=== PATIENT | female | born 1935 | race Caucasian/White ===

== ENCOUNTER → 2016-05-19 | Day surgery (SDC) | payer MEDICARE, OTHER ==
[~2016-05-19] MED LIST: Lactated Ringers 1,000 ML IV SCH; Propofol 200 MG/20 ML SDV IV ONE
[2016-05-19 09:05] VITALS: BP 106/46
--- NOTE | 2016-05-19 13:07 | OR ---
DATE OF OPERATION: 05/19/2016 PREOPERATIVE DIAGNOSIS: HISTORY OF POLYPS. POSTOPERATIVE DIAGNOSIS: HISTORY OF POLYPS. SURGEON: Erik Schumacher MD PROCEDURE: FULL LENGTH COLONOSCOPY WITH SNARE POLYPECTOMY X5. ANESTHESIA: [employer] due to advanced age. COMPLICATIONS: None. SPECIMEN: Five small tubular adenomas, 4 on right colon, and 1 sigmoid. FINDINGS: 1. Full-length colonoscopy. 2. Minimal diverticulosis, sigmoid colon. 3. Five small tubular adenomas, all less than 0.5 cm. RECOMMENDATIONS: The patient can discuss the need for routine follow up with her provider in the next five years. INDICATIONS: The patient has a prior history of colonoscopy with polyp removal. She is due for a followup. DESCRIPTION OF PROCEDURE: The patient was prepped and draped, placed in the left lateral decubitus position. A lubricated Olympus colonoscope was inserted and ultimately advanced to the cecum where we directly visualize the ileocecal valve and appendiceal orifice. The bowel prep was excellent. Upon withdrawal the scope, the patient had four small tubular adenomas, in the right colon one, in the proximal one, in the mid and then two together in the distal prior to the hepatic flexure, all were removed with a snare and suctioned into polyp traps 1, 2, 3, and 4 respectively. The rest of the transverse and descending colon were completely unremarkable. The patient has a few scattered diverticula in the mid to distal sigmoid colon, very mild in severity. At around 35 cm, the patient had another small flat hyperplastic/tubular adenoma polyp removed with a snare and suctioned into polyp trap #5 without complication. The rectal vault was unremarkable. Retroflexion scope in the rectum showed no anal lesions. Air was then suctioned. Scope removed without complications. PHAM/SHRUTHI /[id number]
== END ==
LOC: CC.SDS 07:13
PROVIDERS: ATTEND Family Medicine
DX: Z12.11 Encounter for screening for malignant neoplasm of colon (principal); K57.30 Diverticulosis of large intestine without perforation or abscess without bleeding; I10 Essential (primary) hypertension; E78.00 Pure hypercholesterolemia, unspecified; E55.9 Vitamin D deficiency, unspecified; Z79.899 Other long term (current) drug therapy; Z90.710 Acquired absence of both cervix and uterus; Z88.8 Allergy status to other drugs, medicaments and biological substances; Z96.659 Presence of unspecified artificial knee joint; Z72.0 Tobacco use
CPT/HCPCS: 45385; 88305; J2704; J7120; 00810

== ENCOUNTER 2019-12-22 10:39 | Inpatient (IN) | payer MEDICARE, OTHER ==
[2019-12-22] MEDS ORDERED: Acetaminophen 500 MG Tab PO ONE (11:24)
[2019-12-22] MEDS ORDERED: Sodium Chloride 0.9% 1,000 ML IV SCH (11:30)
[2019-12-22] MEDS: Ondansetron 4 MG/2 ML SDV IVPUSH PRN (11:41)
--- NOTE | 2019-12-22 11:56 | EDM.PDOC ---
ED HPI GENERAL MEDICAL PROBLEM - General Chief Complaint: General Stated Complaint: vomiting, COVID+ Time Seen by Provider: 12/22/19 11:20 Source of Information: Reports: Patient History Limitations: Reports: No Limitations - History of Present Illness INITIAL COMMENTS - FREE TEXT/NARRATIVE: Pierre is an 84 yo female who presents to the ED with not feeling well. States she was diagnosed with COVID last week and was asymptomatic at that time. States yesterday she started to feel ill and today hasn't been able to drink much. States she started vomiting today. Has had loose stools over the weekend. However, when she was diagnosed she states Dr. Castaneda, primary provider, did start her on an antibiotic and steroid. Whenever she is on antibiotics she will get loose stools. States her mouth feels really dry today and has started getting a dry cough. Overall feels really weak. - Related Data Allergies Allergy/AdvReac Type Severity Reaction Status Date / Time codeine Allergy Cannot Verified 12/22/19 10:41 Remember Home Meds: Home Meds Glucosamine/Chondroitin/Vit D3 [[id number] D3 Tab] 1 tab PO DAILY 03/16/16 [History] Magnesium Oxide [Magnesium] 400 mg PO DAILY 03/16/16 [History] Nebivolol [Bystolic] 5 mg PO DAILY 03/16/16 [History] Past Medical History Cardiovascular History: Reports: Hypertension - Infectious Disease History Infectious Disease History: Reports: Novel Coronavirus - Past Surgical History GI Surgical History: Reports: Appendectomy Musculoskeletal Surgical History: Reports: Knee Replacement Social & Family History - Tobacco Use Tobacco Use Status *Q: Never Tobacco User - Caffeine Use Caffeine Use: Reports: Coffee, Soda - Recreational Drug Use Recreational Drug Use: No ED ROS GENERAL - Review of Systems Review Of Systems: See Below Constitutional: Reports: Fever, Chills, Weakness, Fatigue HEENT: Reports: Throat Pain (dry throat) Respiratory: Reports: Cough. Denies: Shortness of Breath, Wheezing, Pleuritic Chest Pain Cardiovascular: Reports: Chest Pain. Denies: Edema, Lightheadedness, P alpitations GI/Abdominal: Reports: Diarrhea, Nausea, Vomiting. Denies: Abdominal Pain, Constipation : Reports: No Symptoms Musculoskeletal: Reports: No Symptoms. Denies: Muscle Pain Skin: Reports: No Symptoms Neurological: Reports: No Symptoms. Denies: Headache Psychiatric: Reports: No Symptoms ED EXAM, GENERAL - Physical Exam Exam: See Below Exam Limited By: No Limitations General Appearance: Alert, Other (appears to be acutely ill, no distress) Eye Exam: Bilateral Eye: Normal Inspection Ears: Normal External Exam, Normal Canal, Hearing Grossly Normal, Normal TMs Nose: Normal Inspection, Normal Mucosa, No Blood Throat/Mouth: Normal Lips, Normal Voice, No Airway Compromise, Other (dry oral mucosa) Head: Atraumatic, Normocephalic Neck: Normal Inspection, Supple, Non-Tender. No: Lymphadenopathy (L), Lymphadenopathy (R) Respiratory/Chest: Chest Non-Tender, Crackles (bases). No: No Accessory Muscle Use, Respiratory Distress Cardiovascular: Normal Peripheral Pulses, Regular Rate, Rhythm, No Edema, No Murmur GI/Abdominal: Normal Bowel Sounds, Soft, Non-Tender, No Organomegaly, No Distention, No Abnormal Bruit Extremities: Normal Inspection, No Pedal Edema Neurological: Alert, Oriented, Normal Cognition, No Motor/Sensory Deficits Psychiatric: Normal Affect, Normal Mood Skin Exam: Dry, Intact, Normal Color, No Rash, Increased Warmth #1 Interpretation Comparison: NA - No Prior EKG Course - Vital Signs Last Recorded V/S: Last Vital Signs Temp 101 F H 12/22/19 11:38 Pulse 66 12/22/19 11:23 Resp 16 12/22/19 11:23 BP 160/67 H 12/22/19 11:23 Pulse Ox 91 L 12/22/19 11:23 - Orders/Labs/Meds Orders: Active Orders 24 hr Category Date Time Status Patient Status Manage Transfer [TRANSFER] Routine ADT 12/22/19 11:40 Active Chest 2V [CR] Stat Exams 12/22/19 10:52 Taken Ondansetron [Zofran] Med 12/22/19 11:32 Active 4 mg IVPUSH Q6H PRN Sodium Chloride 0.9% [Normal Saline] 1,000 ml Med 12/22/19 11:30 Active IV ASDIRECTED Medication Orders Ascorbic Acid (Vitamin C) 500 mg PO BID JOHNY Cholecalciferol (Vitamin D3) 25 mcg PO DAILY JOHNY Enoxaparin Sodium (Lovenox) 40 mg SUBCUT Q24H JOHNY Sodium Chloride (Normal Saline) 1,000 mls @ 150 mls/hr IV ASDIRECTED JOHNY Last Admin: 12/22/19 11:35 Dose: 150 mls/hr Documented by: DAINA Non-Formulary Medication (Magnesium Oxide [Magnesium]) 400 mg PO DAILY [facility] Non-Formulary Medication (Nebivolol [Bystolic]) 5 mg PO DAILY [facility] Ondansetron HCl (Zofran) 4 mg IVPUSH Q6H PRN PRN Reason: Nausea Last Admin: 12/22/19 11:41 Dose: 4 mg Documented by: DAINA Zinc Sulfate (Zincate) 220 mg PO DAILY [facility] Labs: Laboratory Tests 12/22/19 12/22/19 12/22/19 Range/Units 10:51 10:51 10:51 WBC 8.1 (5.0-10.0) 10^3/uL RBC 4.30 (4.00-5.50) 10^6/uL Hgb 13.4 (12.0-16.0) g/dL Hct 40.6 (37.0-47.0) % MCV 94.4 H (82.0-94.0) fL MCH 31.2 (27.0-32.0) pg MCHC 33.0 (33.0-38.0) g/dL RDW Coeff of Kiet 13.8 (11.0-15.0) % Plt Count 203 (150-400) 10^3/uL Neut % (Auto) 75.6 (35-85) % Lymph % (Auto) 11.2 (10-55) % [place] % (Auto) 13.0 (0-16) % Eos % (Auto) 0 (0-5) % Baso % (Auto) 0.2 (0-3) % Neut # (Auto) 6.14 (1.80-7.00) 10^3/uL Lymph # (Auto) 0.91 L (1.00-4.80) 10^3/uL [place] # (Auto) 1.06 H (0.00-0.80) 10^3/uL Eos # (Auto) 0.00 (0.00-0.45) 10^3/uL Baso # (Auto) 0.02 10^3/uL PT 11.2 (9.7-12.3) SEC INR 1.11 (0.92-1.18) D-Dimer, Quantitative 1.29 H (0.00-0.50) Sodium 128 L (136-145) mEq/L Potassium 4.1 (3.5-5.0) mEq/L Chloride 94 L (98-106) mEq/L Carbon Dioxide 24 (21-32) mmol/L BUN 24 H (7-18) mg/dL Creatinine 1.2 H (0.6-1.0) mg/dL Est Cr Clr Drug Dosing 29.06 mL/min Estimated GFR (MDRD) 43 L (>=60) mL/min Glucose 109 H (75-99) mg/dL Lactic Acid (0.4-2.0) mmol/L Calcium 8.0 L (8.4-10.1) mg/dL Total Bilirubin 0.4 (0.0-1.0) mg/dL AST 35 (15-37) U/L ALT 51 (12-78) U/L Alkaline Phosphatase 77 (46-116) U/L C-Reactive Protein 9.1 H (0.2-0.8) mg/dL Total Protein 7.5 (6.4-8.2) g/dL Albumin 3.2 L (3.4-5.0) g/dL 12/22/19 Range/Units 10:51 WBC (5.0-10.0) 10^3/uL RBC (4.00-5.50) 10^6/uL Hgb (12.0-16.0) g/dL Hct (37.0-47.0) % MCV (82.0-94.0) fL MCH (27.0-32.0) pg MCHC (33.0-38.0) g/dL RDW Coeff of Kiet (11.0-15.0) % Plt Count (150-400) 10^3/uL Neut % (Auto) (35-85) % Lymph % (Auto) (10-55) % [place] % (Auto) (0-16) % Eos % (Auto) (0-5) % Baso % (Auto) (0-3) % Neut # (Auto) (1.80-7.00) 10^3/uL Lymph # (Auto) (1.00-4.80) 10^3/uL [place] # (Auto) (0.00-0.80) 10^3/uL Eos # (Auto) (0.00-0.45) 10^3/uL Baso # (Auto) 10^3/uL PT (9.7-12.3) SEC INR (0.92-1.18) D-Dimer, Quantitative (0.00-0.50) Sodium (136-145) mEq/L Potassium (3.5-5.0) mEq/L Chloride (98-106) mEq/L Carbon Dioxide (21-32) mmol/L BUN (7-18) mg/dL Creatinine (0.6-1.0) mg/dL Est Cr Clr Drug Dosing mL/min Estimated GFR (MDRD) (>=60) mL/min Glucose (75-99) mg/dL Lactic Acid 1.5 (0.4-2.0) mmol/L Calcium (8.4-10.1) mg/dL Total Bilirubin (0.0-1.0) mg/dL AST (15-37) U/L ALT (12-78) U/L Alkaline Phosphatase (46-116) U/L C-Reactive Protein (0.2-0.8) mg/dL Total Protein (6.4-8.2) g/dL Albumin (3.4-5.0) g/dL Meds: Medications Generic Name Dose Route Start Last Admin Trade Name Freq PRN Reason Stop Dose Admin Ascorbic Acid 500 mg 12/22/19 20:00 Vitamin C PO BID [facility] Cholecalciferol 25 mcg 12/23/19 08:00 Vitamin D3 PO DAILY [facility] Enoxaparin Sodium 40 mg 12/22/19 12:00 Lovenox SUBCUT Q24H [facility] Sodium Chloride 1,000 mls @ 150 mls/hr 12/22/19 11:30 12/22/19 11:35 Normal Saline IV 150 mls/hr ASDIRECTED JOHNY Administration Non-Formulary Medication 400 mg 12/23/19 08:00 Magnesium Oxide [Magnesium] PO DAILY [facility] Non-Formulary Medication 5 mg 12/23/19 08:00 Nebivolol [Bystolic] PO DAILY [facility] Ondansetron HCl 4 mg 12/22/19 11:32 12/22/19 11:41 Zofran IVPUSH 4 mg Q6H PRN Administration Nausea Zinc Sulfate 220 mg 12/23/19 08:00 Zincate PO DAILY JOHNY Discontinued Medications Generic Name Dose Route Start Last Admin Trade Name Amauriq PRN Reason Stop Dose Admin Acetaminophen 1,000 mg 12/22/19 11:24 12/22/19 11:38 Tylenol Extra Strength PO 12/22/19 11:25 1,000 mg ONETIME ONE Administration Departure - Departure Time of Disposition: 11:57 Disposition: Admitted As Inpatient 64 Clinical Impression: COVID-19, Hyponatremia Nausea and vomiting Qualifiers: Vomiting type: unspecified Vomiting Intractability: non-intractable Qualified Code(s): R11.2 - Nausea with vomiting, unspecified - Discharge Information Sepsis Event Note (ED) - Evaluation Sepsis Screening Result: No Definite Risk - Focused Exam Vital Signs: Vital Signs Temp Temp Pulse Resp BP Pulse Ox 12/22/19 11:38 101 F H 12/22/19 11:23 101 F H 66 16 160/67 H 91 L 12/22/19 10:39 99.4 F 70 18 161/62 H 94 L - Problem List & Annotations (1) COVID-19 SNOMED Code(s): 524133902 Code(s): U07.1 - COVID-19 Status: Acute Current Visit: Yes (2) Hyponatremia SNOMED Code(s): 05105207 Code(s): E87.1 - HYPO-OSMOLALITY AND HYPONATREMIA Status: Acute Current Visit: Yes (3) Nausea and vomiting SNOMED Code(s): 48747114 Code(s): R11.2 - NAUSEA WITH VOMITING, UNSPECIFIED Status: Acute Current Visit: Yes Qualifiers: Vomiting type: unspecified Vomiting Intractability: non-intractable Qualified Code(s): R11.2 - Nausea with vomiting, unspecified - My Orders Last 24 Hours: My Active Orders 12/22/19 10:52 Chest 2V [CR] Stat 12/22/19 11:30 Sodium Chloride 0.9% [Normal Saline] 1,000 ml IV ASDIRECTED 12/22/19 11:32 Ondansetron [Zofran] 4 mg IVPUSH Q6H PRN 12/22/19 11:40 Patient Status Manage Transfer [TRANSFER] Routine - Assessment/Plan Admission H&P: Please use this note as an admission H&P Last 24 Hours: My Active Orders 12/22/19 10:52 Chest 2V [CR] Stat 12/22/19 11:30 Sodium Chloride 0.9% [Normal Saline] 1,000 ml IV ASDIRECTED 12/22/19 11:32 Ondansetron [Zofran] 4 mg IVPUSH Q6H PRN 12/22/19 11:40 Patient Status Manage Transfer [TRANSFER] Routine Plan: discussed findings with Pierre. Will admit to Dr. Schumacher's services under acute care. Patient will get normal saline to correct sodium level. Repeat labs in the morning to follow. Will closely monitor oxygen status as she is currently 92% on RA. Discussed would like to see this at or above 94%. Dr. Schumacher consulted and agrees with admission. I discussed with Pierre further treatment, if needed, such as intubation, etc... which Pierre declined. Patient wishes to be DNR. Patient transferred to floor in satisfactory condition.
[2019-12-22] MEDS: Cholecalciferol (Vitamin D3) 25 MCG Tab PO SCH (12:37)
[2019-12-22] MEDS: Sodium Chloride 0.9% 1,000 ML IV SCH ×2 (14:55→19:52)
[2019-12-22] MEDS: Ascorbic Acid 500 MG Tab PO SCH (19:48)
[2019-12-22] MEDS: Enoxaparin 30 MG/0.3 ML Syringe SUBCUT SCH (19:48)
[2019-12-22] MEDS: Acetaminophen 325 MG Tab PO PRN (19:55)
[2019-12-23] MEDS: Acetaminophen 325 MG Tab PO PRN ×3 (00:20→08:39)
[2019-12-23] MEDS: Sodium Chloride 0.9% 1,000 ML IV SCH (05:52)
[2019-12-23] MEDS: NEBIVOLOL 5 MG PO SCH (07:50)
[2019-12-23] MEDS: Cholecalciferol (Vitamin D3) 25 MCG Tab PO SCH (07:51)
[2019-12-23] MEDS: Zinc Sulfate 220 MG Cap PO SCH (07:51)
[2019-12-23] MEDS: Ascorbic Acid 500 MG Tab PO SCH ×2 (07:51→19:43)
[2019-12-23] MEDS: Ibuprofen 200 MG Tab PO PRN (12:09)
--- NOTE | 2019-12-23 15:54 | PCM.PN ---
- General Info Date of Service: 12/23/19 Admission Dx/Problem (Free Text): Pierre is an 84 yo female who was admitted to the hospital yesterday after being found to be positive for Covid. Upon work up in the ED patient had hyponatremia with a slightly elevated d-dimer and CRP. She had excellent oxygen sats on admission. 12/23/2019 She states she feels slight improvement today as yesterday. States she doesn't have much of an appetite but is eating half of her food. States she hasn't developed any shortness of breath. Cough is non-productive but better than yesterday. States she doesn't feel as unsteady on her feet today. Continue to feel really fatigued. Functional Status: Reports: Pain Controlled, Tolerating Diet (decreased), Ambulating. Denies: New Symptoms - Review of Systems General: Reports: Fever, Fatigue, Malaise HEENT: Reports: No Symptoms Pulmonary: Reports: Cough. Denies: Shortness of Breath, Pleuritic Chest Pain Cardiovascular: Reports: No Symptoms Gastrointestinal: Reports: Decreased Appetite. Denies: Abdominal Pain, Constipation, Diarrhea, Melena, Nausea, Vomiting Genitourinary: Reports: No Symptoms Skin: Reports: No Symptoms Neurological: Reports: No Symptoms Psychiatric: Reports: No Symptoms - Patient Data Vitals - Most Recent: Last Vital Signs Temp 102 F H 12/23/19 12:09 Pulse 64 12/23/19 12:00 Resp 18 12/23/19 12:00 BP 183/63 H 12/23/19 12:00 Pulse Ox 97 12/23/19 12:00 Weight - Most Recent: 173 lb 6.4 oz I&O - Last 24 Hours: Intake & Output 12/23/19 12/23/19 12/23/19 06:59 14:59 22:59 Intake Total 1000 Balance 1000 Lab Results Last 24 Hours: Laboratory Results - last 24 hr 12/23/19 12/23/19 12/23/19 Range/Units 07:00 07:00 07:00 WBC 4.9 L (5.0-10.0) 10^3/uL RBC 3.71 L (4.00-5.50) 10^6/uL Hgb 11.5 L (12.0-16.0) g/dL Hct 35.4 L (37.0-47.0) % MCV 95.4 H (82.0-94.0) fL MCH 31.0 (27.0-32.0) pg MCHC 32.5 L (33.0-38.0) g/dL RDW Coeff of Kiet 13.9 (11.0-15.0) % Plt Count 159 (150-400) 10^3/uL Neut % (Auto) 70.7 (35-85) % Lymph % (Auto) 20.7 (10-55) % [place] % (Auto) 8.2 (0-16) % Eos % (Auto) 0.2 (0-5) % Baso % (Auto) 0.2 (0-3) % Neut # (Auto) 3.44 (1.80-7.00) 10^3/uL Lymph # (Auto) 1.01 (1.00-4.80) 10^3/uL [place] # (Auto) 0.40 (0.00-0.80) 10^3/uL Eos # (Auto) 0.01 (0.00-0.45) 10^3/uL Baso # (Auto) 0.01 10^3/uL D-Dimer, Quantitative 1.27 H (0.00-0.50) Sodium 132 L (136-145) mEq/L Potassium 4.0 (3.5-5.0) mEq/L Chloride 101 (98-106) mEq/L Carbon Dioxide 22 (21-32) mmol/L BUN 22 H (7-18) mg/dL Creatinine 1.1 H (0.6-1.0) mg/dL Est Cr Clr Drug Dosing 31.70 mL/min Estimated GFR (MDRD) 47 L (>=60) mL/min Glucose 85 (75-99) mg/dL Calcium 7.1 L (8.4-10.1) mg/dL Total Bilirubin 0.3 (0.0-1.0) mg/dL AST 29 (15-37) U/L ALT 34 (12-78) U/L Alkaline Phosphatase 57 (46-116) U/L C-Reactive Protein 12.8 H (0.2-0.8) mg/dL NT-Pro-B Natriuret Pep (0-1000) pg/mL Total Protein 5.5 L (6.4-8.2) g/dL Albumin 2.2 L (3.4-5.0) g/dL 12/23/19 Range/Units 07:00 WBC (5.0-10.0) 10^3/uL RBC (4.00-5.50) 10^6/uL Hgb (12.0-16.0) g/dL Hct (37.0-47.0) % MCV (82.0-94.0) fL MCH (27.0-32.0) pg MCHC (33.0-38.0) g/dL RDW Coeff of Kiet (11.0-15.0) % Plt Count (150-400) 10^3/uL Neut % (Auto) (35-85) % Lymph % (Auto) (10-55) % [place] % (Auto) (0-16) % Eos % (Auto) (0-5) % Baso % (Auto) (0-3) % Neut # (Auto) (1.80-7.00) 10^3/uL Lymph # (Auto) (1.00-4.80) 10^3/uL [place] # (Auto) (0.00-0.80) 10^3/uL Eos # (Auto) (0.00-0.45) 10^3/uL Baso # (Auto) 10^3/uL D-Dimer, Quantitative (0.00-0.50) Sodium (136-145) mEq/L Potassium (3.5-5.0) mEq/L Chloride (98-106) mEq/L Carbon Dioxide (21-32) mmol/L BUN (7-18) mg/dL Creatinine (0.6-1.0) mg/dL Est Cr Clr Drug Dosing mL/min Estimated GFR (MDRD) (>=60) mL/min Glucose (75-99) mg/dL Calcium (8.4-10.1) mg/dL Total Bilirubin (0.0-1.0) mg/dL AST (15-37) U/L ALT (12-78) U/L Alkaline Phosphatase (46-116) U/L C-Reactive Protein (0.2-0.8) mg/dL NT-Pro-B Natriuret Pep 679 (0-1000) pg/mL Total Protein (6.4-8.2) g/dL Albumin (3.4-5.0) g/dL Med Orders - Current: Current Medications Acetaminophen (Tylenol) 650 mg PO Q4H PRN PRN Reason: Pain (Mild 1-3)/fever Last Admin: 12/23/19 08:39 Dose: 650 mg Documented by: Ascorbic Acid (Vitamin C) 500 mg PO BID [facility] Last Admin: 12/23/19 07:51 Dose: 500 mg Documented by: Cholecalciferol (Vitamin D3) 25 mcg PO DAILY [facility] Last Admin: 12/23/19 07:51 Dose: 25 mcg Documented by: Enoxaparin Sodium (Lovenox) 30 mg SUBCUT DAILY@1999 [facility] Last Admin: 12/22/19 19:48 Dose: 30 mg Documented by: Ibuprofen (Motrin) 400 mg PO Q6H PRN PRN Reason: Pain (mild 1-3) Last Admin: 12/23/19 12:09 Dose: 400 mg Documented by: Magnesium Oxide (Magnesium Oxide) 500 mg PO DAILY [facility] Last Admin: 12/23/19 07:51 Dose: 500 mg Documented by: Nebivolol [Bystolic] (5 Mg Tab Ptom) 0 mg PO DAILY [facility] Last Admin: 12/23/19 07:50 Dose: 5 mg Documented by: Ondansetron HCl (Zofran) 4 mg IVPUSH Q6H PRN PRN Reason: Nausea Last Admin: 12/22/19 11:41 Dose: 4 mg Documented by: Zinc Sulfate (Zincate) 220 mg PO DAILY [facility] Last Admin: 12/23/19 07:51 Dose: 220 mg Documented by: Discontinued Medications Acetaminophen (Tylenol Extra Strength) 1,000 mg PO ONETIME ONE Stop: 12/22/19 11:25 Last Admin: 12/22/19 11:38 Dose: 1,000 mg Documented by: Sodium Chloride (Normal Saline) 1,000 mls @ 150 mls/hr IV ASDIRECTED [facility] Last Admin: 12/22/19 11:35 Dose: 150 mls/hr Documented by: Sodium Chloride (Normal Saline) 1,000 mls @ 100 mls/hr IV ASDIRECTED [facility] Last Admin: 12/23/19 05:52 Dose: 100 mls/hr Documented by: - Exam Quality Assessment: No: Supplemental Oxygen General: Alert, Oriented Neck: Supple Lungs: Decreased Breath Sounds. No: Rhonchi, Wheezing Cardiovascular: Regular Rate, Regular Rhythm, No Murmurs Extremities: Normal Inspection, No Pedal Edema Skin: Warm, Dry, Intact Psy/Mental Status: Alert, Normal Affect, Normal Mood Sepsis Event Note - Evaluation Sepsis Screening Result: No Definite Risk - Focused Exam Vital Signs: Vital Signs Temp Temp Pulse Resp BP Pulse Ox 12/23/19 12:09 102 F H 12/23/19 12:00 102.0 F H 64 18 183/63 H 97 12/23/19 08:00 101.1 F H 70 18 178/70 H 98 12/23/19 05:45 100.6 F 12/23/19 04:15 101.8 F H 64 16 135/49 L 95 - Problem List & Annotations (1) COVID-19 SNOMED Code(s): 409457659 Code(s): U07.1 - COVID-19 Status: Acute Current Visit: Yes (2) Hyponatremia SNOMED Code(s): 43349326 Code(s): E87.1 - HYPO-OSMOLALITY AND HYPONATREMIA Status: Acute Current Visit: Yes (3) Nausea and vomiting SNOMED Code(s): 00335340 Code(s): R11.2 - NAUSEA WITH VOMITING, UNSPECIFIED Status: Resolved Current Visit: Yes Qualifiers: Vomiting type: unspecified Vomiting Intractability: non-intractable Qualified Code(s): R11.2 - Nausea with vomiting, unspecified - Problem List Review Problem List Initiated/Reviewed/Updated: Yes - My Orders Last 24 Hours: My Active Orders 12/22/19 20:00 Ascorbic Acid [Vitamin C] 500 mg PO BID Enoxaparin [Lovenox] 30 mg SUBCUT DAILY@199912/23/19 08:00 Magnesium Oxide 500 mg PO DAILY Nebivolol [Bystolic] 0 mg PO DAILY Zinc Sulfate [Zincate] 220 mg PO DAILY 12/23/19 11:27 Blood Culture x2 Reflex Set [OM.PC] Stat 12/23/19 11:50 CULTURE BLOOD [BC] Stat CULTURE BLOOD [BC] Stat 12/24/19 05:11 C-REACTIVE PROTEIN [CHEM] AM CBC WITH AUTO DIFF [HEME] AM COMPREHENSIVE METABOLIC PN,CMP [CHEM] AM D-DIMER QUANTITATIVE [COAG] AM LACTIC ACID [CHEM] AM 11/12/20 05:11 C-REACTIVE PROTEIN [CHEM] AM CBC WITH AUTO DIFF [HEME] AM COMPREHENSIVE METABOLIC PN,CMP [CHEM] AM D-DIMER QUANTITATIVE [COAG] AM - Plan Plan:: 12/23/2019 Pierre's laboratory work today did show improvement with sodium level to 132, up from 128 yesterday. Will d/c IV fluids and encourage adequate oral intake. Oxygen saturation continues to be excellent. Currently does not qualify for Remdesevir or dexamethasone use d/t no sign of hypoxia. CRP did elevate today otherwise labs are all stable. Hgb dropped, likely secondary to IV fluids. Will repeat labs tomorrow. Discussed with Pierre if she continues to show improvement and correction of hyponatremia will look at discharge tomorrow or . Patient verbalized understanding.
[2019-12-23] MEDS: Enoxaparin 30 MG/0.3 ML Syringe SUBCUT SCH (19:43)
[2019-12-24] MEDS: Zinc Sulfate 220 MG Cap PO SCH (08:29)
[2019-12-24] MEDS: NEBIVOLOL 5 MG PO SCH (08:29)
[2019-12-24] MEDS: Ascorbic Acid 500 MG Tab PO SCH ×2 (08:30→20:38)
[2019-12-24] MEDS: Cholecalciferol (Vitamin D3) 25 MCG Tab PO SCH (08:31)
[2019-12-24] MEDS ORDERED: Sodium Chloride 0.9% 250 ML IV SCH (09:00)
[2019-12-24] MEDS: Ibuprofen 200 MG Tab PO PRN (09:38)
[2019-12-24] MEDS ORDERED: REMDESIVIR 200 MG in Sodium Chloride 0.9% 250 ML IV ONE (11:00)
[2019-12-24] MEDS: Dexamethasone 4 MG/ML SDV IVPUSH SCH (11:58)
--- NOTE | 2019-12-24 12:17 | PCM.PN ---
- General Info Date of Service: 12/24/19 Admission Dx/Problem (Free Text): Pierre is an 84 yo female who was admitted to the hospital yesterday after being found to be positive for Covid. Upon work up in the ED patient had hyponatremia with a slightly elevated d-dimer and CRP. She had excellent oxygen sats on admission. 12/23/2019 She states she feels slight improvement today as yesterday. States she doesn't have much of an appetite but is eating half of her food. States she hasn't developed any shortness of breath. Cough is non-productive but better than yesterday. States she doesn't feel as unsteady on her feet today. Continue to feel really fatigued. 12/24/2019 Pierre states she continues to feel weak and starting to experience some shortness of breath. States she doesn't feel she is a lot worse but just not getting any better. Denies any other new onset of symptoms. Continues to have a non- productive cough. Has been running a slight fever off and on. Functional Status: Reports: Pain Controlled, Tolerating Diet (decreased appetite) - Review of Systems General: Reports: Fever, Fatigue, Malaise HEENT: Reports: No Symptoms Pulmonary: Reports: Shortness of Breath, Cough (dry). Denies: Pleuritic Chest Pain, Sputum, Wheezing Cardiovascular: Reports: No Symptoms Gastrointestinal: Reports: No Symptoms Musculoskeletal: Reports: No Symptoms Neurological: Reports: No Symptoms Psychiatric: Reports: No Symptoms - Patient Data Vitals - Most Recent: Last Vital Signs Temp 96.7 F L 12/24/19 10:38 Pulse 70 12/24/19 08:00 Resp 18 12/24/19 08:00 BP 178/70 H 12/24/19 08:00 Pulse Ox 93 L 12/24/19 10:02 Weight - Most Recent: 173 lb 6.4 oz Lab Results Last 24 Hours: Laboratory Results - last 24 hr 12/24/19 12/24/19 12/24/19 Range/Units 05:11 05:11 05:11 WBC 6.1 (5.0-10.0) 10^3/uL RBC 3.89 L (4.00-5.50) 10^6/uL Hgb 12.0 (12.0-16.0) g/dL Hct 36.7 L (37.0-47.0) % MCV 94.3 H (82.0-94.0) fL MCH 30.8 (27.0-32.0) pg MCHC 32.7 L (33.0-38.0) g/dL RDW Coeff of Kiet 13.5 (11.0-15.0) % Plt Count 159 (150-400) 10^3/uL Neut % (Auto) 75.2 (35-85) % Lymph % (Auto) 17.3 (10-55) % [place] % (Auto) 7.0 (0-16) % Eos % (Auto) 0.2 (0-5) % Baso % (Auto) 0.3 (0-3) % Neut # (Auto) 4.62 (1.80-7.00) 10^3/uL Lymph # (Auto) 1.06 (1.00-4.80) 10^3/uL [place] # (Auto) 0.43 (0.00-0.80) 10^3/uL Eos # (Auto) 0.01 (0.00-0.45) 10^3/uL Baso # (Auto) 0.02 10^3/uL D-Dimer, Quantitative 1.29 H (0.00-0.50) Sodium 129 L (136-145) mEq/L Potassium 4.5 (3.5-5.0) mEq/L Chloride 97 L (98-106) mEq/L Carbon Dioxide 25 (21-32) mmol/L BUN 15 (7-18) mg/dL Creatinine 1.0 (0.6-1.0) mg/dL Est Cr Clr Drug Dosing 34.87 mL/min Estimated GFR (MDRD) 53 L (>=60) mL/min Glucose 98 (75-99) mg/dL Lactic Acid (0.4-2.0) mmol/L Calcium 7.5 L (8.4-10.1) mg/dL Total Bilirubin 0.2 (0.0-1.0) mg/dL AST 41 H (15-37) U/L ALT 34 (12-78) U/L Alkaline Phosphatase 62 (46-116) U/L Lactate Dehydrogenase (100-190) U/L Creatine Kinase (21-215) U/L C-Reactive Protein 15.2 H (0.2-0.8) mg/dL Total Protein 6.0 L (6.4-8.2) g/dL Albumin 2.3 L (3.4-5.0) g/dL Blood Type 12/24/19 12/24/19 12/24/19 Range/Units 05:11 05:11 07:00 WBC (5.0-10.0) 10^3/uL RBC (4.00-5.50) 10^6/uL Hgb (12.0-16.0) g/dL Hct (37.0-47.0) % MCV (82.0-94.0) fL MCH (27.0-32.0) pg MCHC (33.0-38.0) g/dL RDW Coeff of Kiet (11.0-15.0) % Plt Count (150-400) 10^3/uL Neut % (Auto) (35-85) % Lymph % (Auto) (10-55) % [place] % (Auto) (0-16) % Eos % (Auto) (0-5) % Baso % (Auto) (0-3) % Neut # (Auto) (1.80-7.00) 10^3/uL Lymph # (Auto) (1.00-4.80) 10^3/uL [place] # (Auto) (0.00-0.80) 10^3/uL Eos # (Auto) (0.00-0.45) 10^3/uL Baso # (Auto) 10^3/uL D-Dimer, Quantitative (0.00-0.50) Sodium (136-145) mEq/L Potassium (3.5-5.0) mEq/L Chloride (98-106) mEq/L Carbon Dioxide (21-32) mmol/L BUN (7-18) mg/dL Creatinine (0.6-1.0) mg/dL Est Cr Clr Drug Dosing mL/min Estimated GFR (MDRD) (>=60) mL/min Glucose (75-99) mg/dL Lactic Acid 1.0 (0.4-2.0) mmol/L Calcium (8.4-10.1) mg/dL Total Bilirubin (0.0-1.0) mg/dL AST (15-37) U/L ALT (12-78) U/L Alkaline Phosphatase (46-116) U/L Lactate Dehydrogenase 426 H (100-190) U/L Creatine Kinase 152 (21-215) U/L C-Reactive Protein (0.2-0.8) mg/dL Total Protein (6.4-8.2) g/dL Albumin (3.4-5.0) g/dL Blood Type O POSITIVE Jose Luis Results Last 24 Hours: Microbiology 12/23/19 11:50 Aerobic Blood Culture - Preliminary Blood - Venous - Lab Draw NO GROWTH AFTER 1 DAY Anaerobic Blood Culture - Preliminary NO GROWTH AFTER 1 DAY 12/23/19 11:50 Aerobic Blood Culture - Preliminary Blood - Venous NO GROWTH AFTER 1 DAY Anaerobic Blood Culture - Preliminary NO GROWTH AFTER 1 DAY Med Orders - Current: Current Medications Acetaminophen (Tylenol) 650 mg PO Q4H PRN PRN Reason: Pain (Mild 1-3)/fever Last Admin: 12/23/19 08:39 Dose: 650 mg Documented by: Ascorbic Acid (Vitamin C) 500 mg PO BID [facility] Last Admin: 12/24/19 08:30 Dose: 500 mg Documented by: Cholecalciferol (Vitamin D3) 25 mcg PO DAILY [facility] Last Admin: 12/24/19 08:31 Dose: 25 mcg Documented by: Dexamethasone (Decadron) 6 mg IVPUSH DAILY [facility] Last Admin: 12/24/19 11:58 Dose: 6 mg Documented by: Enoxaparin Sodium (Lovenox) 30 mg SUBCUT DAILY@1999 [facility] Last Admin: 12/23/19 19:43 Dose: 30 mg Documented by: Remdesivir 100 mg/ Sodium (Chloride) 100 mls @ 100 mls/hr IV Q24H [facility] Stop: 12/28/19 12:59 Ibuprofen (Motrin) 400 mg PO Q6H PRN PRN Reason: Pain (mild 1-3) Last Admin: 12/24/19 09:38 Dose: 400 mg Documented by: Magnesium Oxide (Magnesium Oxide) 500 mg PO DAILY [facility] Last Admin: 12/24/19 08:30 Dose: 500 mg Documented by: Nebivolol [Bystolic] (5 Mg Tab Ptom) 0 mg PO DAILY [facility] Last Admin: 12/24/19 08:29 Dose: 1 mg Documented by: Ondansetron HCl (Zofran) 4 mg IVPUSH Q6H PRN PRN Reason: Nausea Last Admin: 12/22/19 11:41 Dose: 4 mg Documented by: Zinc Sulfate (Zincate) 220 mg PO DAILY [facility] Last Admin: 12/24/19 08:29 Dose: 220 mg Documented by: Discontinued Medications Acetaminophen (Tylenol Extra Strength) 1,000 mg PO ONETIME ONE Stop: 12/22/19 11:25 Last Admin: 12/22/19 11:38 Dose: 1,000 mg Documented by: Sodium Chloride (Normal Saline) 1,000 mls @ 150 mls/hr IV ASDIRECTED [facility] Last Admin: 12/22/19 11:35 Dose: 150 mls/hr Documented by: Sodium Chloride (Normal Saline) 1,000 mls @ 100 mls/hr IV ASDIRECTED [facility] Last Admin: 12/23/19 05:52 Dose: 100 mls/hr Documented by: Remdesivir 200 mg/ Sodium (Chloride) 250 mls @ 250 mls/hr IV ONETIME ONE Stop: 12/24/19 11:59 Last Admin: 12/24/19 11:58 Dose: 250 mls/hr Documented by: - Exam General: Alert, Oriented, Cooperative, No Acute Distress Neck: Supple Lungs: Decreased Breath Sounds, Crackles (bases). No: Wheezing Cardiovascular: Regular Rate, Regular Rhythm, No Murmurs Extremities: Normal Inspection, No Pedal Edema Skin: Warm, Dry, Intact Neurological: No New Focal Deficit Psy/Mental Status: Alert, Normal Affect, Normal Mood Sepsis Event Note - Evaluation Sepsis Screening Result: No Definite Risk - Focused Exam Vital Signs: Vital Signs Temp Temp Pulse Resp BP Pulse Ox 12/24/19 10:38 96.7 F L 12/24/19 10:02 93 L 12/24/19 09:38 100.7 F H 12/24/19 08:00 100.7 F H 70 18 178/70 H 89 L - Problem List & Annotations (1) COVID-19 SNOMED Code(s): 945288208 Code(s): U07.1 - COVID-19 Status: Acute Current Visit: Yes (2) Hyponatremia SNOMED Code(s): 60646716 Code(s): E87.1 - HYPO-OSMOLALITY AND HYPONATREMIA Status: Acute Current Visit: Yes (3) Nausea and vomiting SNOMED Code(s): 94879321 Code(s): R11.2 - NAUSEA WITH VOMITING, UNSPECIFIED Status: Resolved Current Visit: Yes Qualifiers: Vomiting type: unspecified Vomiting Intractability: non-intractable Qualified Code(s): R11.2 - Nausea with vomiting, unspecified - Problem List Review Problem List Initiated/Reviewed/Updated: Yes - My Orders Last 24 Hours: My Active Orders 12/23/19 11:27 Blood Culture x2 Reflex Set [OM.PC] Stat 12/23/19 11:50 CULTURE BLOOD [BC] Stat CULTURE BLOOD [BC] Stat 12/24/19 07:00 ABO/RH TYPE [BBK] Routine FRESH FROZEN PLASMA [BBK] Routine 12/24/19 08:47 Verify Patient Consent Obtain [RC] ASDIRECTED [facility] Fresh Frozen Plasma [COMM] Routine 12/24/19 11:00 dexAMETHasone [Decadron] 6 mg IVPUSH DAILY 12/25/19 05:11 C-REACTIVE PROTEIN [CHEM] AM CBC WITH AUTO DIFF [HEME] AM COMPREHENSIVE METABOLIC PN,CMP [CHEM] AM D-DIMER QUANTITATIVE [COAG] AM INR,PT,PROTHROMBIN TIME [COAG] AM LACTATE DEHYDROGENASE,LDH [CHEM] AM PTT,PARTIAL THROMBOPLSTIN TIME [COAG] AM 12/25/19 12:00 Remdesivir (Eua) [Remdesivir (EUA)] 100 mg Sodium Chloride 0.9% [Normal Saline] 100 ml IV Q24H 12/26/19 05:11 INR,PT,PROTHROMBIN TIME [COAG] AM LACTATE DEHYDROGENASE,LDH [CHEM] AM PTT,PARTIAL THROMBOPLSTIN TIME [COAG] AM 12/27/19 05:11 INR,PT,PROTHROMBIN TIME [COAG] AM PTT,PARTIAL THROMBOPLSTIN TIME [COAG] AM 12/28/19 05:11 INR,PT,PROTHROMBIN TIME [COAG] AM PTT,PARTIAL THROMBOPLSTIN TIME [COAG] AM - Plan Plan:: 12/23/2019 Pierre's laboratory work today did show improvement with sodium level to 132, up from 128 yesterday. Will d/c IV fluids and encourage adequate oral intake. Oxygen saturation continues to be excellent. Currently does not qualify for Remdesevir or dexamethasone use d/t no sign of hypoxia. CRP did elevate today otherwise labs are all stable. Hgb dropped, likely secondary to IV fluids. Will repeat labs tomorrow. Discussed with Pierre if she continues to show improvement and correction of hyponatremia will look at discharge tomorrow or . Patient verbalized understanding. 12/24/2019 Pierre's oxygen has declined this morning, currently 89% on room air. Oxygen supplementation via nasal canula started and currently 96%. Blood cultures are pending with no growth at 1 day. Will start Remdesevir, Convalescent Plasma and IV dexamethasone. Discussed all treatments into detail with Pierre. Update given to daughter Vida via phone (POA) who verbalized understanding and current treatment plan. Will closely monitor. Follow labs daily. Overall labs today are stable from yesterday.
[2019-12-24] MEDS: Enoxaparin 30 MG/0.3 ML Syringe SUBCUT SCH (20:38)
[2019-12-25 07:35] LABS: PTT,PARTIAL THROMBOPLSTIN TIME 25.9 SEC (23.2-32.3)
[2019-12-25 07:36] LABS: CHLORIDE,CL 100 mEq/L (98-106); SODIUM,NA 133 mEq/L (136-145)
[2019-12-25] MEDS: Acetaminophen 325 MG Tab PO PRN (07:48)
[2019-12-25] MEDS: Cholecalciferol (Vitamin D3) 25 MCG Tab PO SCH (07:49)
[2019-12-25] MEDS: Zinc Sulfate 220 MG Cap PO SCH (07:49)
[2019-12-25] MEDS: Ascorbic Acid 500 MG Tab PO SCH ×2 (07:49→19:37)
[2019-12-25] MEDS: Dexamethasone 4 MG/ML SDV IVPUSH SCH (07:49)
[2019-12-25] MEDS: NEBIVOLOL 5 MG PO SCH (07:56)
[2019-12-25] MEDS ORDERED: Sodium Chloride 0.9% 250 ML IV SCH (10:30)
[2019-12-25] MEDS: REMDESIVIR 100 MG in Sodium Chloride 0.9% 100 ML IV SCH (12:35)
[2019-12-25] MEDS: Enoxaparin 40 MG/0.4 ML Syringe SUBCUT SCH (19:38)
[2019-12-26 07:23] LABS: PTT,PARTIAL THROMBOPLSTIN TIME 24.7 SEC (23.2-32.3)
[2019-12-26] MEDS: Dexamethasone 4 MG/ML SDV IVPUSH SCH (07:59)
[2019-12-26] MEDS: NEBIVOLOL 5 MG PO SCH (08:00)
[2019-12-26] MEDS: Ascorbic Acid 500 MG Tab PO SCH ×2 (08:00→20:03)
[2019-12-26] MEDS: Cholecalciferol (Vitamin D3) 25 MCG Tab PO SCH (08:00)
[2019-12-26] MEDS: Zinc Sulfate 220 MG Cap PO SCH (08:00)
--- NOTE | 2019-12-26 08:21 | PCM.PN ---
- General Info Date of Service: 12/25/19 Admission Dx/Problem (Free Text): Pierre is an 84 yo female who was admitted to the hospital yesterday after being found to be positive for Covid. Upon work up in the ED patient had hyponatremia with a slightly elevated d-dimer and CRP. She had excellent oxygen sats on admission. 12/23/2019 She states she feels slight improvement today as yesterday. States she doesn't have much of an appetite but is eating half of her food. States she hasn't developed any shortness of breath. Cough is non-productive but better than yesterday. States she doesn't feel as unsteady on her feet today. Continue to feel really fatigued. 12/24/2019 Pierre states she continues to feel weak and starting to experience some shortness of breath. States she doesn't feel she is a lot worse but just not getting any better. Denies any other new onset of symptoms. Continues to have a non- productive cough. Has been running a slight fever off and on. 12/25/2019 Pierre doesn't feel she has any improvement today. States she feels extremely weak. Has been tolerating the oxygen. States she has body aches all over as well. - Review of Systems General: Reports: Weakness, Fatigue. Denies: Fever HEENT: Reports: Headaches Pulmonary: Reports: Shortness of Breath, Cough Cardiovascular: Reports: No Symptoms Gastrointestinal: Reports: No Symptoms Genitourinary: Reports: No Symptoms Musculoskeletal: Reports: Other (body aches) Skin: Reports: No Symptoms Neurological: Reports: No Symptoms Psychiatric: Reports: No Symptoms - Patient Data Vitals - Most Recent: Last Vital Signs Temp 99.0 F 12/26/19 04:00 Pulse 58 L 12/26/19 04:00 Resp 15 12/26/19 05:53 BP 173/64 H 12/26/19 04:00 Pulse Ox 93 L 12/26/19 05:53 Weight - Most Recent: 173 lb 6.4 oz I&O - Last 24 Hours: Intake & Output 12/25/19 12/26/19 12/26/19 22:59 06:59 14:59 Intake Total 0 Balance 0 Lab Results Last 24 Hours: Laboratory Results - last 24 hr 11/11/20 11/12/20 11/13/20 Range/Units 07:00 06:55 06:55 PT 11.3 (9.7-12.3) SEC INR 1.12 (0.92-1.18) APTT 25.9 (23.2-32.3) SEC D-Dimer, Quantitative 1.37 H (0.00-0.50) Lactate Dehydrogenase 539 H (100-190) U/L Blood Type O POSITIVE 12/26/19 Range/Units 06:55 PT 11.0 (9.7-12.3) SEC INR 1.09 (0.92-1.18) APTT 24.7 (23.2-32.3) SEC D-Dimer, Quantitative (0.00-0.50) Lactate Dehydrogenase (100-190) U/L Blood Type Jose Luis Results Last 24 Hours: Microbiology 12/23/19 11:50 Aerobic Blood Culture - Preliminary Blood - Venous - Lab Draw NO GROWTH AFTER 2 DAYS Anaerobic Blood Culture - Preliminary NO GROWTH AFTER 2 DAYS 12/23/19 11:50 Aerobic Blood Culture - Preliminary Blood - Venous NO GROWTH AFTER 2 DAYS Anaerobic Blood Culture - Preliminary NO GROWTH AFTER 2 DAYS Med Orders - Current: Current Medications Acetaminophen (Tylenol) 650 mg PO Q4H PRN PRN Reason: Pain (Mild 1-3)/fever Last Admin: 12/25/19 07:48 Dose: 650 mg Documented by: Ascorbic Acid (Vitamin C) 500 mg PO BID [facility] Last Admin: 12/26/19 08:00 Dose: 500 mg Documented by: Cholecalciferol (Vitamin D3) 25 mcg PO DAILY [facility] Last Admin: 12/26/19 08:00 Dose: 25 mcg Documented by: Dexamethasone (Decadron) 6 mg IVPUSH DAILY [facility] Last Admin: 12/26/19 07:59 Dose: 6 mg Documented by: Enoxaparin Sodium (Lovenox) 40 mg SUBCUT DAILY@1999 [facility] Last Admin: 12/25/19 19:38 Dose: 40 mg Documented by: Remdesivir 100 mg/ Sodium (Chloride) 100 mls @ 100 mls/hr IV Q24H [facility] Stop: 12/28/19 12:59 Last Admin: 12/25/19 12:35 Dose: 100 mls/hr Documented by: Ibuprofen (Motrin) 400 mg PO Q6H PRN PRN Reason: Pain (mild 1-3) Last Admin: 12/24/19 09:38 Dose: 400 mg Documented by: Magnesium Oxide (Magnesium Oxide) 500 mg PO DAILY [facility] Last Admin: 12/26/19 07:59 Dose: 500 mg Documented by: Nebivolol [Bystolic] (5 Mg Tab Ptom) 0 mg PO DAILY [facility] Last Admin: 12/26/19 08:00 Dose: 1 mg Documented by: Ondansetron HCl (Zofran) 4 mg IVPUSH Q6H PRN PRN Reason: Nausea Last Admin: 12/22/19 11:41 Dose: 4 mg Documented by: Zinc Sulfate (Zincate) 220 mg PO DAILY [facility] [place] Last Admin: 12/26/19 08:00 Dose: 220 mg Documented by: Discontinued Medications Acetaminophen (Tylenol Extra Strength) 1,000 mg PO ONETIME ONE Stop: 12/22/19 11:25 Last Admin: 12/22/19 11:38 Dose: 1,000 mg Documented by: Enoxaparin Sodium (Lovenox) 30 mg SUBCUT DAILY@1999 [facility] Last Admin: 12/24/19 20:38 Dose: 30 mg Documented by: Sodium Chloride (Normal Saline) 1,000 mls @ 150 mls/hr IV ASDIRECTED [facility] Last Admin: 12/22/19 11:35 Dose: 150 mls/hr Documented by: Sodium Chloride (Normal Saline) 1,000 mls @ 100 mls/hr IV ASDIRECTED [facility] Last Admin: 12/23/19 05:52 Dose: 100 mls/hr Documented by: Remdesivir 200 mg/ Sodium (Chloride) 250 mls @ 250 mls/hr IV ONETIME ONE Stop: 12/24/19 11:59 Last Admin: 12/24/19 11:58 Dose: 250 mls/hr Documented by: Sodium Chloride (Normal Saline) 250 mls @ 25 mls/hr IV ASDIRECTED [facility] Last Admin: 12/25/19 10:00 Dose: 25 mls/hr Documented by: - Exam General: Alert, Oriented, Cooperative Neck: Supple Lungs: Decreased Breath Sounds, Crackles Cardiovascular: Regular Rate, Regular Rhythm GI/Abdominal Exam: Normal Bowel Sounds, Soft Extremities: Normal Inspection, No Pedal Edema Skin: Warm, Dry, Intact Psy/Mental Status: Alert, Normal Affect, Normal Mood Sepsis Event Note - Evaluation Sepsis Screening Result: No Definite Risk - Focused Exam Vital Signs: Vital Signs Temp Pulse Resp BP Pulse Ox 12/26/19 05:53 15 93 L 12/26/19 04:00 99.0 F 58 L 15 173/64 H 93 L 12/26/19 00:33 99.0 F 59 L 16 147/49 H 98 - Problem List & Annotations (1) COVID-19 SNOMED Code(s): 141367100 Code(s): U07.1 - COVID-19 Status: Acute Current Visit: Yes (2) Hyponatremia SNOMED Code(s): 42802683 Code(s): E87.1 - HYPO-OSMOLALITY AND HYPONATREMIA Status: Acute Current Visit: Yes (3) Nausea and vomiting SNOMED Code(s): 73381026 Code(s): R11.2 - NAUSEA WITH VOMITING, UNSPECIFIED Status: Resolved Current Visit: Yes Qualifiers: Vomiting type: unspecified Vomiting Intractability: non-intractable Qualified Code(s): R11.2 - Nausea with vomiting, unspecified (4) Hypoxia SNOMED Code(s): 358316281 Code(s): R09.02 - HYPOXEMIA Status: Acute Current Visit: Yes - Problem List Review Problem List Initiated/Reviewed/Updated: Yes - My Orders Last 24 Hours: My Active Orders 12/25/19 12:00 Remdesivir (Eua) [Remdesivir (EUA)] 100 mg Sodium Chloride 0.9% [Normal Saline] 100 ml IV Q24H 12/25/19 20:00 Enoxaparin [Lovenox] 40 mg SUBCUT DAILY@199912/27/19 05:11 INR,PT,PROTHROMBIN TIME [COAG] AM PTT,PARTIAL THROMBOPLSTIN TIME [COAG] AM 12/28/19 05:11 INR,PT,PROTHROMBIN TIME [COAG] AM PTT,PARTIAL THROMBOPLSTIN TIME [COAG] AM - Plan Plan:: 12/23/2019 Pierre's laboratory work today did show improvement with sodium level to 132, up from 128 yesterday. Will d/c IV fluids and encourage adequate oral intake. Oxygen saturation continues to be excellent. Currently does not qualify for Remdesevir or dexamethasone use d/t no sign of hypoxia. CRP did elevate today otherwise labs are all stable. Hgb dropped, likely secondary to IV fluids. Will repeat labs tomorrow. Discussed with Pierre if she continues to show improvement and correction of hyponatremia will look at discharge tomorrow or . Patient verbalized understanding. 12/24/2019 Pierre's oxygen has declined this morning, currently 89% on room air. Oxygen supplementation via nasal canula started and currently 96%. Blood cultures are pending with no growth at 1 day. Will start Remdesevir, Convalescent Plasma and IV dexamethasone. Discussed all treatments into detail with Pierre. Update given to daughter Vida via phone (POA) who verbalized understanding and current treatment plan. Will closely monitor. Follow labs daily. Overall labs today are stable from yesterday. 12/25/2019 Pierre continues to require oxygen at 2L/min per nasal canula. Patient will get 1 unit of Convalescent plasma today. Will continue IV dexamethasone. Will continue to follow labs daily.
[2019-12-26 08:51] LABS: CHLORIDE,CL 97 mEq/L (98-106); SODIUM,NA 133 mEq/L (136-145)
--- NOTE | 2019-12-26 09:38 | PCM.PN ---
- General Info Date of Service: 12/26/19 Admission Dx/Problem (Free Text): Pierre is an 84 yo female who was admitted to the hospital yesterday after being found to be positive for Covid. Upon work up in the ED patient had hyponatremia with a slightly elevated d-dimer and CRP. She had excellent oxygen sats on admission. 12/23/2019 She states she feels slight improvement today as yesterday. States she doesn't have much of an appetite but is eating half of her food. States she hasn't developed any shortness of breath. Cough is non-productive but better than yesterday. States she doesn't feel as unsteady on her feet today. Continue to feel really fatigued. 12/24/2019 Pierre states she continues to feel weak and starting to experience some shortness of breath. States she doesn't feel she is a lot worse but just not getting any better. Denies any other new onset of symptoms. Continues to have a non- productive cough. Has been running a slight fever off and on. 12/25/2019 Pierre doesn't feel she has any improvement today. States she feels extremely weak. Has been tolerating the oxygen. States she has body aches all over as well. 12/26/2019 Pierre continues to require oxygen but tolerating it. Last night they did turn up her oxygen to 4L/min per nasal canula. She states today she is feeling a little bit better and has been able to eat some cereal. States before she couldn't even look at food without getting nauseated. She has been up more this morning. States she is changing positions in bed frequently as well. Questions if she needs to continue with steroids this morning. Functional Status: Reports: Pain Controlled - Review of Systems General: Reports: Weakness, Fatigue. Denies: Fever HEENT: Reports: No Symptoms Pulmonary: Reports: Shortness of Breath, Cough (improving). Denies: Pleuritic Chest Pain, Sputum, Wheezing Cardiovascular: Denies: Chest Pain, Orthopnea Gastrointestinal: Reports: Decreased Appetite, Nausea. Denies: Diarrhea, Vomiting Musculoskeletal: Reports: Other (body aches, improved from yesterday) Neurological: Reports: No Symptoms - Patient Data Vitals - Most Recent: Last Vital Signs Temp 99.0 F 12/26/19 04:00 Pulse 58 L 12/26/19 04:00 Resp 15 12/26/19 05:53 BP 173/64 H 12/26/19 04:00 Pulse Ox 93 L 12/26/19 05:53 Weight - Most Recent: 173 lb 6.4 oz I&O - Last 24 Hours: Intake & Output 12/25/19 12/26/19 12/26/19 22:59 06:59 14:59 Intake Total 0 Balance 0 Lab Results Last 24 Hours: Laboratory Results - last 24 hr 12/24/19 12/26/19 12/26/19 Range/Units 07:00 06:55 06:55 WBC (5.0-10.0) 10^3/uL RBC (4.00-5.50) 10^6/uL Hgb (12.0-16.0) g/dL Hct (37.0-47.0) % MCV (82.0-94.0) fL MCH (27.0-32.0) pg MCHC (33.0-38.0) g/dL RDW Coeff of Kiet (11.0-15.0) % Plt Count (150-400) 10^3/uL Neut % (Auto) (35-85) % Lymph % (Auto) (10-55) % [place] % (Auto) (0-16) % Eos % (Auto) (0-5) % Baso % (Auto) (0-3) % Neut # (Auto) (1.80-7.00) 10^3/uL Lymph # (Auto) (1.00-4.80) 10^3/uL [place] # (Auto) (0.00-0.80) 10^3/uL Eos # (Auto) (0.00-0.45) 10^3/uL Baso # (Auto) 10^3/uL PT 11.0 (9.7-12.3) SEC INR 1.09 (0.92-1.18) APTT 24.7 (23.2-32.3) SEC D-Dimer, Quantitative (0.00-0.50) Sodium (136-145) mEq/L Potassium (3.5-5.0) mEq/L Chloride (98-106) mEq/L Carbon Dioxide (21-32) mmol/L BUN (7-18) mg/dL Creatinine (0.6-1.0) mg/dL Est Cr Clr Drug Dosing mL/min Estimated GFR (MDRD) (>=60) mL/min Glucose (75-99) mg/dL Calcium (8.4-10.1) mg/dL Total Bilirubin (0.0-1.0) mg/dL AST (15-37) U/L ALT (12-78) U/L Alkaline Phosphatase (46-116) U/L Lactate Dehydrogenase 539 H (100-190) U/L Creatine Kinase (21-215) U/L Troponin I (0.00-0.06) ng/mL C-Reactive Protein (0.2-0.8) mg/dL Total Protein (6.4-8.2) g/dL Albumin (3.4-5.0) g/dL Blood Type O POSITIVE 12/26/19 12/26/19 12/26/19 Range/Units 07:00 07:00 07:00 WBC 8.1 (5.0-10.0) 10^3/uL RBC 4.02 (4.00-5.50) 10^6/uL Hgb 12.4 (12.0-16.0) g/dL Hct 37.9 (37.0-47.0) % MCV 94.3 H (82.0-94.0) fL MCH 30.8 (27.0-32.0) pg MCHC 32.7 L (33.0-38.0) g/dL RDW Coeff of Kiet 13.6 (11.0-15.0) % Plt Count 194 (150-400) 10^3/uL Neut % (Auto) 76.5 (35-85) % Lymph % (Auto) 13.3 (10-55) % [place] % (Auto) 9.5 (0-16) % Eos % (Auto) 0 (0-5) % Baso % (Auto) 0.7 (0-3) % Neut # (Auto) 6.19 (1.80-7.00) 10^3/uL Lymph # (Auto) 1.08 (1.00-4.80) 10^3/uL [place] # (Auto) 0.77 (0.00-0.80) 10^3/uL Eos # (Auto) 0.00 (0.00-0.45) 10^3/uL Baso # (Auto) 0.06 10^3/uL PT (9.7-12.3) SEC INR (0.92-1.18) APTT (23.2-32.3) SEC D-Dimer, Quantitative 1.11 H (0.00-0.50) Sodium 133 L (136-145) mEq/L Potassium 4.2 (3.5-5.0) mEq/L Chloride 97 L (98-106) mEq/L Carbon Dioxide 25 (21-32) mmol/L BUN 22 H (7-18) mg/dL Creatinine 0.8 (0.6-1.0) mg/dL Est Cr Clr Drug Dosing 43.59 mL/min Estimated GFR (MDRD) > 60 (>=60) mL/min Glucose 100 H (75-99) mg/dL Calcium 8.1 L (8.4-10.1) mg/dL Total Bilirubin 0.4 (0.0-1.0) mg/dL AST 57 H (15-37) U/L ALT 44 (12-78) U/L Alkaline Phosphatase 63 (46-116) U/L Lactate Dehydrogenase 545 H (100-190) U/L Creatine Kinase 135 (21-215) U/L Troponin I 0.031 (0.00-0.06) ng/mL C-Reactive Protein 6.7 H (0.2-0.8) mg/dL Total Protein 6.7 (6.4-8.2) g/dL Albumin 2.6 L (3.4-5.0) g/dL Blood Type Jose Luis Results Last 24 Hours: Microbiology 12/23/19 11:50 Aerobic Blood Culture - Preliminary Blood - Venous - Lab Draw NO GROWTH AFTER 2 DAYS Anaerobic Blood Culture - Preliminary NO GROWTH AFTER 2 DAYS 12/23/19 11:50 Aerobic Blood Culture - Preliminary Blood - Venous NO GROWTH AFTER 2 DAYS Anaerobic Blood Culture - Preliminary NO GROWTH AFTER 2 DAYS Med Orders - Current: Current Medications Acetaminophen (Tylenol) 650 mg PO Q4H PRN PRN Reason: Pain (Mild 1-3)/fever Last Admin: 12/25/19 07:48 Dose: 650 mg Documented by: Ascorbic Acid (Vitamin C) 500 mg PO BID [facility] Last Admin: 12/26/19 08:00 Dose: 500 mg Documented by: Cholecalciferol (Vitamin D3) 25 mcg PO DAILY [facility] Last Admin: 12/26/19 08:00 Dose: 25 mcg Documented by: Dexamethasone (Decadron) 6 mg IVPUSH DAILY [facility] Last Admin: 12/26/19 07:59 Dose: 6 mg Documented by: Enoxaparin Sodium (Lovenox) 40 mg SUBCUT DAILY@1999 [facility] Last Admin: 12/25/19 19:38 Dose: 40 mg Documented by: Remdesivir 100 mg/ Sodium (Chloride) 100 mls @ 100 mls/hr IV Q24H [facility] Stop: 12/28/19 12:59 Last Admin: 12/25/19 12:35 Dose: 100 mls/hr Documented by: Ibuprofen (Motrin) 400 mg PO Q6H PRN PRN Reason: Pain (mild 1-3) Last Admin: 12/24/19 09:38 Dose: 400 mg Documented by: Magnesium Oxide (Magnesium Oxide) 500 mg PO DAILY [facility] Last Admin: 12/26/19 07:59 Dose: 500 mg Documented by: Nebivolol [Bystolic] (5 Mg Tab Ptom) 0 mg PO DAILY [facility] Last Admin: 12/26/19 08:00 Dose: 1 mg Documented by: Ondansetron HCl (Zofran) 4 mg IVPUSH Q6H PRN PRN Reason: Nausea Last Admin: 12/22/19 11:41 Dose: 4 mg Documented by: Zinc Sulfate (Zincate) 220 mg PO DAILY [facility] Last Admin: 12/26/19 08:00 Dose: 220 mg Documented by: Discontinued Medications Acetaminophen (Tylenol Extra Strength) 1,000 mg PO ONETIME ONE Stop: 12/22/19 11:25 Last Admin: 12/22/19 11:38 Dose: 1,000 mg Documented by: Enoxaparin Sodium (Lovenox) 30 mg SUBCUT DAILY@1999 [facility] Last Admin: 12/24/19 20:38 Dose: 30 mg Documented by: Sodium Chloride (Normal Saline) 1,000 mls @ 150 mls/hr IV ASDIRECTED [facility] Last Admin: 12/22/19 11:35 Dose: 150 mls/hr Documented by: Sodium Chloride (Normal Saline) 1,000 mls @ 100 mls/hr IV ASDIRECTED [facility] Last Admin: 12/23/19 05:52 Dose: 100 mls/hr Documented by: Remdesivir 200 mg/ Sodium (Chloride) 250 mls @ 250 mls/hr IV ONETIME ONE Stop: 12/24/19 11:59 Last Admin: 12/24/19 11:58 Dose: 250 mls/hr Documented by: Sodium Chloride (Normal Saline) 250 mls @ 25 mls/hr IV ASDIRECTED [facility] Last Admin: 12/25/19 10:00 Dose: 25 mls/hr Documented by: - Exam Quality Assessment: Supplemental Oxygen General: Alert, Oriented, Cooperative, No Acute Distress (appears more alert today and interactive) Neck: Supple Lungs: Normal Respiratory Effort, Decreased Breath Sounds, Crackles Cardiovascular: Regular Rate, Regular Rhythm GI/Abdominal Exam: Normal Bowel Sounds, Soft, Non-Tender, No Organomegaly Extremities: Normal Inspection Skin: Warm, Dry, Intact Psy/Mental Status: Alert, Normal Affect, Normal Mood Sepsis Event Note - Evaluation Sepsis Screening Result: No Definite Risk - Focused Exam Vital Signs: Vital Signs Temp Pulse Resp BP Pulse Ox 12/26/19 05:53 15 93 L 12/26/19 04:00 99.0 F 58 L 15 173/64 H 93 L 12/26/19 00:33 99.0 F 59 L 16 147/49 H 98 - Problem List & Annotations (1) COVID-19 SNOMED Code(s): 941988888 Code(s): U07.1 - COVID-19 Status: Acute Current Visit: Yes (2) Hyponatremia SNOMED Code(s): 05778518 Code(s): E87.1 - HYPO-OSMOLALITY AND HYPONATREMIA Status: Acute Current Visit: Yes (3) Nausea and vomiting SNOMED Code(s): 60175207 Code(s): R11.2 - NAUSEA WITH VOMITING, UNSPECIFIED Status: Resolved Current Visit: Yes Qualifiers: Vomiting type: unspecified Vomiting Intractability: non-intractable Qualified Code(s): R11.2 - Nausea with vomiting, unspecified (4) Hypoxia SNOMED Code(s): 429454340 Code(s): R09.02 - HYPOXEMIA Status: Acute Current Visit: Yes - Problem List Review Problem List Initiated/Reviewed/Updated: Yes - My Orders Last 24 Hours: My Active Orders 12/25/19 12:00 Remdesivir (Eua) [Remdesivir (EUA)] 100 mg Sodium Chloride 0.9% [Normal Saline] 100 ml IV Q24H 12/25/19 20:00 Enoxaparin [Lovenox] 40 mg SUBCUT DAILY@199912/26/19 08:28 Chest 2V [CR] Routine 12/27/19 05:11 INR,PT,PROTHROMBIN TIME [COAG] AM PTT,PARTIAL THROMBOPLSTIN TIME [COAG] AM 12/27/19 08:00 C-REACTIVE PROTEIN [CHEM] DAILY CBC WITH AUTO DIFF [HEME] DAILY COMPREHENSIVE METABOLIC PN,CMP [CHEM] DAILY D Dimer [D-DIMER QUANTITATIVE] [COAG] DAILY LACTATE DEHYDROGENASE,LDH [CHEM] DAILY 12/28/19 05:11 INR,PT,PROTHROMBIN TIME [COAG] AM PTT,PARTIAL THROMBOPLSTIN TIME [COAG] AM 12/28/19 08:00 C-REACTIVE PROTEIN [CHEM] DAILY CBC WITH AUTO DIFF [HEME] DAILY COMPREHENSIVE METABOLIC PN,CMP [CHEM] DAILY D Dimer [D-DIMER QUANTITATIVE] [COAG] DAILY LACTATE DEHYDROGENASE,LDH [CHEM] DAILY - Plan Plan:: 12/23/2019 Pierre's laboratory work today did show improvement with sodium level to 132, up from 128 yesterday. Will d/c IV fluids and encourage adequate oral intake. Oxygen saturation continues to be excellent. Currently does not qualify for Remdesevir or dexamethasone use d/t no sign of hypoxia. CRP did elevate today otherwise labs are all stable. Hgb dropped, likely secondary to IV fluids. Will repeat labs tomorrow. Discussed with Pierre if she continues to show improvement and correction of hyponatremia will look at discharge tomorrow or . Patient verbalized understanding. 12/24/2019 [facility] oxygen has declined this morning, currently 89% on room air. Oxygen supplementation via nasal canula started and currently 96%. Blood cultures are pending with no growth at 1 day. Will start Remdesevir, Convalescent Plasma and IV dexamethasone. Discussed all treatments into detail with Pierre. Update given to daughter Vida via phone (POA) who verbalized understanding and current treatment plan. Will closely monitor. Follow labs daily. Overall labs today are stable from yesterday. 12/25/2019 Pierre continues to require oxygen at 2L/min per nasal canula. Patient will get 1 unit of Convalescent plasma today. Will continue IV dexamethasone. Will continue to follow labs daily. 12/26/2019 Pierre is currently on 4L/min per nasal canula. She is upright and more interactive today as compared to prior days. Reviewed laboratory work today and overall all labs besides LDH are trending back to normal. Discussed LDH with Dr. Schumacher via phone consultation and will closely monitor. Waiting on chest x-ray this morning. Will continue with acute status d/t demanding more oxygen over night.
[2019-12-26] MEDS: REMDESIVIR 100 MG in Sodium Chloride 0.9% 100 ML IV SCH (11:13)
[2019-12-26] MEDS: Enoxaparin 40 MG/0.4 ML Syringe SUBCUT SCH (20:03)
[2019-12-27] MEDS: Cholecalciferol (Vitamin D3) 25 MCG Tab PO SCH (08:03)
[2019-12-27] MEDS: Zinc Sulfate 220 MG Cap PO SCH (08:03)
[2019-12-27] MEDS: Ascorbic Acid 500 MG Tab PO SCH ×2 (08:04→19:49)
[2019-12-27] MEDS: Dexamethasone 4 MG/ML SDV IVPUSH SCH (08:04)
[2019-12-27] MEDS: NEBIVOLOL 5 MG PO SCH (08:06)
[2019-12-27 08:15] LABS: CHLORIDE,CL 99 mEq/L (98-106); SODIUM,NA 134 mEq/L (136-145)
[2019-12-27 08:16] LABS: PTT,PARTIAL THROMBOPLSTIN TIME 24.2 SEC (23.2-32.3)
[2019-12-27] MEDS: Ondansetron 4 MG/2 ML SDV IVPUSH PRN (08:56)
--- NOTE | 2019-12-27 11:00 | PCM.PN ---
- General Info Date of Service: 12/27/19 Functional Status: Reports: Pain Controlled, Tolerating Diet - Review of Systems General: Reports: Weakness, Fatigue HEENT: Reports: No Symptoms Pulmonary: Reports: Shortness of Breath, Cough Cardiovascular: Reports: No Symptoms Gastrointestinal: Reports: No Symptoms Genitourinary: Reports: No Symptoms Musculoskeletal: Reports: No Symptoms Skin: Reports: No Symptoms Neurological: Reports: No Symptoms Psychiatric: Reports: No Symptoms - Patient Data Vitals - Most Recent: Last Vital Signs Temp 98.2 F 12/27/19 08:00 Pulse 60 12/27/19 08:00 Resp 20 12/27/19 08:00 BP 150/61 H 12/27/19 08:00 Pulse Ox 93 L 12/27/19 08:00 Weight - Most Recent: 173 lb 6.4 oz Lab Results Last 24 Hours: Laboratory Results - last 24 hr 12/27/19 12/27/19 12/27/19 Range/Units 05:11 08:00 08:00 WBC 8.6 (5.0-10.0) 10^3/uL RBC 4.00 (4.00-5.50) 10^6/uL Hgb 12.3 (12.0-16.0) g/dL Hct 37.6 (37.0-47.0) % MCV 94.0 (82.0-94.0) fL MCH 30.8 (27.0-32.0) pg MCHC 32.7 L (33.0-38.0) g/dL RDW Coeff of Kiet 13.4 (11.0-15.0) % Plt Count 202 (150-400) 10^3/uL Neut % (Auto) 79.3 (35-85) % Lymph % (Auto) 12.1 (10-55) % [place] % (Auto) 7.2 (0-16) % Eos % (Auto) 0 (0-5) % Baso % (Auto) 1.4 (0-3) % Neut # (Auto) 6.78 (1.80-7.00) 10^3/uL Lymph # (Auto) 1.04 (1.00-4.80) 10^3/uL [place] # (Auto) 0.62 (0.00-0.80) 10^3/uL Eos # (Auto) 0.00 (0.00-0.45) 10^3/uL Baso # (Auto) 0.12 10^3/uL PT 11.5 (9.7-12.3) SEC INR 1.14 (0.92-1.18) APTT 24.2 (23.2-32.3) SEC D-Dimer, Quantitative 1.31 H (0.00-0.50) Sodium 134 L (136-145) mEq/L Potassium 4.0 (3.5-5.0) mEq/L Chloride 99 (98-106) mEq/L Carbon Dioxide 27 (21-32) mmol/L BUN 22 H (7-18) mg/dL Creatinine 0.8 (0.6-1.0) mg/dL Est Cr Clr Drug Dosing 43.59 mL/min Estimated GFR (MDRD) > 60 (>=60) mL/min Glucose 98 (75-99) mg/dL Calcium 8.1 L (8.4-10.1) mg/dL Total Bilirubin 0.4 (0.0-1.0) mg/dL AST 56 H (15-37) U/L ALT 48 (12-78) U/L Alkaline Phosphatase 65 (46-116) U/L Lactate Dehydrogenase 537 H (100-190) U/L C-Reactive Protein 5.8 H (0.2-0.8) mg/dL Total Protein 6.6 (6.4-8.2) g/dL Albumin 2.5 L (3.4-5.0) g/dL Jose Luis Results Last 24 Hours: Microbiology 12/23/19 11:50 Aerobic Blood Culture - Preliminary Blood - Venous - Lab Draw NO GROWTH AFTER 3 DAYS Anaerobic Blood Culture - Preliminary NO GROWTH AFTER 3 DAYS 12/23/19 11:50 Aerobic Blood Culture - Preliminary Blood - Venous NO GROWTH AFTER 3 DAYS Anaerobic Blood Culture - Preliminary NO GROWTH AFTER 3 DAYS Med Orders - Current: Current Medications Acetaminophen (Tylenol) 650 mg PO Q4H PRN PRN Reason: Pain (Mild 1-3)/fever Last Admin: 12/25/19 07:48 Dose: 650 mg Documented by: Ascorbic Acid (Vitamin C) 500 mg PO BID [facility] Last Admin: 12/27/19 08:04 Dose: 500 mg Documented by: Cholecalciferol (Vitamin D3) 25 mcg PO DAILY [facility] Last Admin: 12/27/19 08:03 Dose: 25 mcg Documented by: Dexamethasone (Decadron) 6 mg IVPUSH DAILY [facility] Last Admin: 12/27/19 08:04 Dose: 6 mg Documented by: Enoxaparin Sodium (Lovenox) 40 mg SUBCUT DAILY@1999 [facility] Last Admin: 12/26/19 20:03 Dose: 40 mg Documented by: Remdesivir 100 mg/ Sodium (Chloride) 100 mls @ 100 mls/hr IV Q24H [facility] Stop: 12/28/19 12:59 Last Admin: 12/26/19 11:13 Dose: 100 mls/hr Documented by: Ibuprofen (Motrin) 400 mg PO Q6H PRN PRN Reason: Pain (mild 1-3) Last Admin: 12/24/19 09:38 Dose: 400 mg Documented by: Magnesium Oxide (Magnesium Oxide) 500 mg PO DAILY [facility] Last Admin: 12/27/19 08:03 Dose: 500 mg Documented by: Nebivolol [Bystolic] (5 Mg Tab Ptom) 0 mg PO DAILY [facility] Last Admin: 12/27/19 08:06 Dose: 5 mg Documented by: Ondansetron HCl (Zofran) 4 mg IVPUSH Q6H PRN PRN Reason: Nausea Last Admin: 12/27/19 08:56 Dose: 4 mg Documented by: Zinc Sulfate (Zincate) 220 mg PO DAILY [facility] Last Admin: 12/27/19 08:03 Dose: 220 mg Documented by: Discontinued Medications Acetaminophen (Tylenol Extra Strength) 1,000 mg PO ONETIME ONE Stop: 12/22/19 11:25 Last Admin: 12/22/19 11:38 Dose: 1,000 mg Documented by: Enoxaparin Sodium (Lovenox) 30 mg SUBCUT DAILY@1999 [facility] Last Admin: 12/24/19 20:38 Dose: 30 mg Documented by: Sodium Chloride (Normal Saline) 1,000 mls @ 150 mls/hr IV ASDIRECTED [facility] Last Admin: 12/22/19 11:35 Dose: 150 mls/hr Documented by: Sodium Chloride (Normal Saline) 1,000 mls @ 100 mls/hr IV ASDIRECTED [facility] Last Admin: 12/23/19 05:52 Dose: 100 mls/hr Documented by: Remdesivir 200 mg/ Sodium (Chloride) 250 mls @ 250 mls/hr IV ONETIME ONE Stop: 12/24/19 11:59 Last Admin: 12/24/19 11:58 Dose: 250 mls/hr Documented by: Sodium Chloride (Normal Saline) 250 mls @ 25 mls/hr IV ASDIRECTED [facility] Last Admin: 12/25/19 10:00 Dose: 25 mls/hr Documented by: - Exam General: Alert, Oriented, Cooperative, No Acute Distress Neck: Supple, Trachea Midline, No JVD Lungs: Normal Respiratory Effort, Crackles (scant, bialteral bases. ) Cardiovascular: Regular Rate, Bradycardia (48. Has had hx of. On Bystolic. Asymptomatic.) GI/Abdominal Exam: Soft, Non-Tender Back Exam: Normal Inspection Extremities: Normal Inspection, Normal Range of Motion, Non-Tender, No Pedal Edema, Normal Capillary Refill Peripheral Pulses: 2+: Radial (L), Radial (R), Posterior Tibial (L), Posterior Tibial (R) Skin: Warm, Dry, Intact Neurological: No New Focal Deficit, Normal Speech Psy/Mental Status: Alert, Normal Affect, Normal Mood Sepsis Event Note - Evaluation Sepsis Screening Result: No Definite Risk - Focused Exam Vital Signs: Vital Signs Temp Pulse Resp BP BP Pulse Ox 12/27/19 08:00 98.2 F 60 20 150/61 H 93 L 12/27/19 04:00 98.1 F 57 L 18 150/38 H 90 L 12/27/19 02:16 90 L 12/27/19 02:14 97 F 52 L 16 149/55 H 79 L - Problem List Review Problem List Initiated/Reviewed/Updated: Yes - Plan Plan:: 12/23/2019 [facility] laboratory work today did show improvement with sodium level to 132, up from 128 yesterday. Will d/c IV fluids and encourage adequate oral intake. Oxygen saturation continues to be excellent. Currently does not qualify for Remdesevir or dexamethasone use d/t no sign of hypoxia. CRP did elevate today otherwise labs are all stable. Hgb dropped, likely secondary to IV fluids. Will repeat labs tomorrow. Discussed with Pierre if she continues to show improvement and correction of hyponatremia will look at discharge tomorrow or . Patient verbalized understanding. 12/24/2019 [facility] oxygen has declined this morning, currently 89% on room air. Oxygen supplementation via nasal canula started and currently 96%. Blood cultures are pending with no growth at 1 day. Will start Remdesevir, Convalescent Plasma and IV dexamethasone. Discussed all treatments into detail with Pierre. Update given to daughter Vida via phone (POA) who verbalized understanding and current treatment plan. Will closely monitor. Follow labs daily. Overall labs today are stable from yesterday. 12/25/2019 Pierre continues to require oxygen at 2L/min per nasal canula. Patient will get 1 unit of Convalescent plasma today. Will continue IV dexamethasone. Will continue to follow labs daily. 12/26/2019 Pierre is currently on 4L/min per nasal canula. She is upright and more inter active today as compared to prior days. Reviewed laboratory work today and overall all labs besides LDH are trending back to normal. Discussed LDH with Dr. Schumacher via phone consultation and will closely monitor. Waiting on chest x-ray this morning. Will continue with acute status d/t demanding more oxygen over night. 12/27/2019 1030am Patient remains acute states, will continue this status. The patient reports that she continues to be short of breath. She reports that she is unable to lay on abdomen, she reports she has never been able to do this. Labs appear unremarkable. The patient is currently on oxygen 5L NC at 93%. She is trending oxygen up. At 2am this morning, patient had her oxygen off, her oxygen saturation was 79%. Patient will continue Remdesevir today and tomorrow. Patient is fully alert and oriented. She is sitting up in her chair. She reported she was nausea this morning, was given Zofran, then ate a good breakfast. She reports her appetite is up this morning after the Zofran. Will continue plan, acute admit. Patient HR is in the 40s, has been history of. On Bystolic. No dizziness, lightheaded, passing out.
[2019-12-27] MEDS: REMDESIVIR 100 MG in Sodium Chloride 0.9% 100 ML IV SCH (11:18)
[2019-12-27] MEDS: Enoxaparin 40 MG/0.4 ML Syringe SUBCUT SCH (19:49)
[2019-12-28] MEDS: Ascorbic Acid 500 MG Tab PO SCH ×2 (07:51→20:09)
[2019-12-28] MEDS: Cholecalciferol (Vitamin D3) 25 MCG Tab PO SCH (07:51)
[2019-12-28] MEDS: Zinc Sulfate 220 MG Cap PO SCH (07:53)
[2019-12-28] MEDS: Dexamethasone 4 MG Tab PO SCH (07:53)
[2019-12-28] MEDS: NEBIVOLOL 5 MG PO SCH (07:58)
[2019-12-28 08:22] LABS: PTT,PARTIAL THROMBOPLSTIN TIME 23.2 SEC (23.2-32.3)
[2019-12-28 08:25] LABS: CHLORIDE,CL 101 mEq/L (98-106); SODIUM,NA 135 mEq/L (136-145)
[2019-12-28] MEDS: Ondansetron 4 MG/2 ML SDV IVPUSH PRN ×2 (08:30→17:07)
--- NOTE | 2019-12-28 09:52 | PCM.PN ---
- General Info Date of Service: 12/28/19 Functional Status: Reports: Pain Controlled, Tolerating Diet (eating about half meals, nauseated. ), Ambulating (inthe room), Urinating - Review of Systems General: Reports: Weakness (generally), Fatigue, Malaise, Appetite (decreased) HEENT: Reports: Post Nasal Drip, Sinus Congestion Pulmonary: Reports: Shortness of Breath, Cough. Denies: Sputum Cardiovascular: Reports: No Symptoms Gastrointestinal: Reports: Decreased Appetite, Nausea. Denies: Abdominal Pain, Vomiting Genitourinary: Reports: No Symptoms Musculoskeletal: Reports: No Symptoms Skin: Reports: No Symptoms Neurological: Reports: No Symptoms Psychiatric: Reports: No Symptoms - Patient Data Vitals - Most Recent: Last Vital Signs Temp 97.8 F 12/28/19 08:00 Pulse 53 L 12/28/19 08:00 Resp 20 12/28/19 08:00 BP 145/41 H 12/28/19 08:00 Pulse Ox 92 L 12/28/19 08:00 Weight - Most Recent: 173 lb 6.4 oz Lab Results Last 24 Hours: Laboratory Results - last 24 hr 12/28/19 12/28/19 12/28/19 Range/Units 05:11 08:00 08:00 WBC 8.5 (5.0-10.0) 10^3/uL RBC 3.77 L (4.00-5.50) 10^6/uL Hgb 11.6 L (12.0-16.0) g/dL Hct 35.4 L (37.0-47.0) % MCV 93.9 (82.0-94.0) fL MCH 30.8 (27.0-32.0) pg MCHC 32.8 L (33.0-38.0) g/dL RDW Coeff of Kiet 13.4 (11.0-15.0) % Plt Count 193 (150-400) 10^3/uL Neut % (Auto) 77.8 (35-85) % Lymph % (Auto) 14.2 (10-55) % [place] % (Auto) 6.6 (0-16) % Eos % (Auto) 0.1 (0-5) % Baso % (Auto) 1.3 (0-3) % Neut # (Auto) 6.58 (1.80-7.00) 10^3/uL Lymph # (Auto) 1.20 (1.00-4.80) 10^3/uL [place] # (Auto) 0.56 (0.00-0.80) 10^3/uL Eos # (Auto) 0.01 (0.00-0.45) 10^3/uL Baso # (Auto) 0.11 10^3/uL PT 11.5 (9.7-12.3) SEC INR 1.14 (0.92-1.18) APTT 23.2 (23.2-32.3) SEC Sodium 135 L (136-145) mEq/L Potassium 4.6 (3.5-5.0) mEq/L Chloride 101 (98-106) mEq/L Carbon Dioxide 26 (21-32) mmol/L BUN 21 H (7-18) mg/dL Creatinine 0.7 (0.6-1.0) mg/dL Est Cr Clr Drug Dosing 49.82 mL/min Estimated GFR (MDRD) > 60 (>=60) mL/min Glucose 86 (75-99) mg/dL Calcium 8.0 L (8.4-10.1) mg/dL Total Bilirubin 0.4 (0.0-1.0) mg/dL AST 48 H (15-37) U/L ALT 51 (12-78) U/L Alkaline Phosphatase 60 (46-116) U/L Lactate Dehydrogenase 462 H (100-190) U/L C-Reactive Protein 4.2 H (0.2-0.8) mg/dL Total Protein 5.9 L (6.4-8.2) g/dL Albumin 2.3 L (3.4-5.0) g/dL Jose Luis Results Last 24 Hours: Microbiology 12/23/19 11:50 Aerobic Blood Culture - Preliminary Blood - Venous - Lab Draw NO GROWTH AFTER 4 DAYS Anaerobic Blood Culture - Preliminary NO GROWTH AFTER 4 DAYS 12/23/19 11:50 Aerobic Blood Culture - Preliminary Blood - Venous NO GROWTH AFTER 4 DAYS Anaerobic Blood Culture - Preliminary NO GROWTH AFTER 4 DAYS Med Orders - Current: Current Medications Acetaminophen (Tylenol) 650 mg PO Q4H PRN PRN Reason: Pain (Mild 1-3)/fever Last Admin: 12/25/19 07:48 Dose: 650 mg Documented by: Ascorbic Acid (Vitamin C) 500 mg PO BID [facility] Last Admin: 12/28/19 07:51 Dose: 500 mg Documented by: Cholecalciferol (Vitamin D3) 25 mcg PO DAILY [facility] Last Admin: 12/28/19 07:51 Dose: 25 mcg Documented by: Dexamethasone (Dexamethasone) 6 mg PO DAILY [facility] Last Admin: 12/28/19 07:53 Dose: 6 mg Documented by: Enoxaparin Sodium (Lovenox) 40 mg SUBCUT DAILY@1999 [facility] Last Admin: 12/27/19 19:49 Dose: 40 mg Documented by: Remdesivir 100 mg/ Sodium (Chloride) 100 mls @ 100 mls/hr IV Q24H [facility] Stop: 12/28/19 12:59 Last Admin: 12/27/19 11:18 Dose: 100 mls/hr Documented by: Ibuprofen (Motrin) 400 mg PO Q6H PRN PRN Reason: Pain (mild 1-3) Last Admin: 12/24/19 09:38 Dose: 400 mg Documented by: Magnesium Oxide (Magnesium Oxide) 500 mg PO DAILY [facility] Last Admin: 12/28/19 07:51 Dose: 500 mg Documented by: Nebivolol [Bystolic] (5 Mg Tab Ptom) 0 mg PO DAILY [facility] Last Admin: 12/28/19 07:58 Dose: 5 mg Documented by: Ondansetron HCl (Zofran) 4 mg IVPUSH Q6H PRN PRN Reason: Nausea Last Admin: 12/28/19 08:30 Dose: 4 mg Documented by: Zinc Sulfate (Zincate) 220 mg PO DAILY [facility] Last Admin: 12/28/19 07:53 Dose: 220 mg Documented by: Discontinued Medications Acetaminophen (Tylenol Extra Strength) 1,000 mg PO ONETIME ONE Stop: 12/22/19 11:25 Last Admin: 12/22/19 11:38 Dose: 1,000 mg Documented by: Dexamethasone (Decadron) 6 mg IVPUSH DAILY [facility] Last Admin: 12/27/19 08:04 Dose: 6 mg Documented by: Enoxaparin Sodium (Lovenox) 30 mg SUBCUT DAILY@1999 [facility] Last Admin: 12/24/19 20:38 Dose: 30 mg Documented by: Sodium Chloride (Normal Saline) 1,000 mls @ 150 mls/hr IV ASDIRECTED [facility] Last Admin: 12/22/19 11:35 Dose: 150 mls/hr Documented by: Sodium Chloride (Normal Saline) 1,000 mls @ 100 mls/hr IV ASDIRECTED [facility] Last Admin: 12/23/19 05:52 Dose: 100 mls/hr Documented by: Remdesivir 200 mg/ Sodium (Chloride) 250 mls @ 250 mls/hr IV ONETIME ONE Stop: 12/24/19 11:59 Last Admin: 12/24/19 11:58 Dose: 250 mls/hr Documented by: Sodium Chloride (Normal Saline) 250 mls @ 25 mls/hr IV ASDIRECTED [facility] Last Admin: 12/25/19 10:00 Dose: 25 mls/hr Documented by: - Exam General: Alert, Oriented, Cooperative, No Acute Distress Neck: Supple, Trachea Midline, No JVD Lungs: Decreased Breath Sounds (mildly throughout), Crackles (mild bases. ) Cardiovascular: Regular Rate, Bradycardia GI/Abdominal Exam: Soft, Non-Tender Back Exam: Normal Inspection Extremities: Normal Inspection, Normal Range of Motion, Non-Tender, No Pedal Edema, Normal Capillary Refill Peripheral Pulses: 2+: Radial (L), Radial (R), Posterior Tibial (L), Posterior Tibial (R) Skin: Warm, Dry, Intact Psy/Mental Status: Alert, Normal Affect, Normal Mood Sepsis Event Note - Evaluation Sepsis Screening Result: No Definite Risk - Focused Exam Vital Signs: Vital Signs Temp Pulse Resp BP BP Pulse Ox 12/28/19 08:00 97.8 F 53 L 20 145/41 H 92 L 12/28/19 03:56 97.8 F 50 L 20 161/55 H 90 L 12/27/19 23:56 97.1 F 52 L 22 H 154/60 H 90 L - Problem List Review Problem List Initiated/Reviewed/Updated: Yes - My Orders Last 24 Hours: My Active Orders 12/28/19 08:00 dexAMETHasone 6 mg PO DAILY - Plan Plan:: 12/23/2019 Pierre's laboratory work today did show improvement with sodium level to 132, up from 128 yesterday. Will d/c IV fluids and encourage adequate oral intake. Oxygen saturation continues to be excellent. Currently does not qualify for Remdesevir or dexamethasone use d/t no sign of hypoxia. CRP did elevate today otherwise labs are all stable. Hgb dropped, likely secondary to IV fluids. Will repeat labs tomorrow. Discussed with Peirre if she continues to show improvement and correction of hyponatremia will look at discharge tomorrow or . Patient verbalized understanding. 12/24/2019 Pierre's oxygen has declined this morning, currently 89% on room air. Oxygen supplementation via nasal canula started and currently 96%. Blood cultures are pending with no growth at 1 day. Will start Remdesevir, Convalescent Plasma and IV dexamethasone. Discussed all treatments into detail with Pierre. Update given to daughter Vida via phone (POA) who verbalized understanding and current treatment plan. Will closely monitor. Follow labs daily. Overall labs today are stable from yesterday. 12/25/2019 Pierre continues to require oxygen at 2L/min per nasal canula. Patient will get 1 unit of Convalescent plasma today. Will continue IV dexamethasone. Will continue to follow labs daily. 12/26/2019 Pierre is currently on 4L/min per nasal canula. She is upright and more interactive today as compared to prior days. Reviewed laboratory work today and overall all labs besides LDH are trending back to normal. Discussed LDH with Dr. Schumacher via phone consultation and will closely monitor. Waiting on chest x-ray this morning. Will continue with acute status d/t demanding more oxygen over night. 12/27/2019 1030am Patient remains acute states, will continue this status. The patient reports that she continues to be short of breath. She reports that she is unable to lay on abdomen, she reports she has never been able to do this. Labs appear unremarkable. The patient is currently on oxygen 5L NC at 93%. She is trending oxygen up. At 2am this morning, patient had her oxygen off, her oxygen saturation was 79%. Patient will continue Remdesevir today and tomorrow. Patient is fully alert and oriented. She is sitting up in her chair. She reported she was nausea this morning, was given Zofran, then ate a good breakfast. She reports her appetite is up this morning after the Zofran. Will continue plan, acute admit. 12/28/2019 0850am Patient remains acute states, will continue this status. The patient reports that she continues to be short of breath. She reports that she is unable to lay on abdomen, she reports she has never been able to do this. Labs appear unremarkable. The patient is currently on oxygen 6L NC at 91%. She is trending oxygen up. Patient reports though that her biggest complaint is a decreased appetite.Patient HR is in the 40s, has been history of. On Bystolic. No dizziness, lightheaded, passing out.
[2019-12-28] MEDS: REMDESIVIR 100 MG in Sodium Chloride 0.9% 100 ML IV SCH (11:28)
[2019-12-28] MEDS: Enoxaparin 40 MG/0.4 ML Syringe SUBCUT SCH (20:09)
[2019-12-29] MEDS: Dexamethasone 4 MG Tab PO SCH (08:11)
[2019-12-29] MEDS: Cholecalciferol (Vitamin D3) 25 MCG Tab PO SCH (08:12)
[2019-12-29] MEDS: Zinc Sulfate 220 MG Cap PO SCH (08:12)
[2019-12-29] MEDS: Ascorbic Acid 500 MG Tab PO SCH (08:12)
[2019-12-29] MEDS: NEBIVOLOL 5 MG PO SCH (08:56)
[2019-12-29 09:03] VITALS: BP 153/57; PULSE 49
== END 2019-12-29 08:53 | disposition swing bed (61) | DRG 178 ==
LOC: CC.ED 10:39 → CC.MS 11:40 → UNDOADMIN 11:41
PROVIDERS: ADMIT Physician Assistant Medical; ATTEND Family Medicine
PROC: XW033E5 Introduction of Remdesivir Anti-infective into Peripheral Vein, Percutaneous Approach, New Technology Group 5 (ICD-10-PCS; principal; 2019-12-24)
PROC: XW13325 Transfusion of Convalescent Plasma (Nonautologous) into Peripheral Vein, Percutaneous Approach, New Technology Group 5 (ICD-10-PCS; 2019-12-25)
DX: U07.1 COVID-19 (principal); E87.1 Hypo-osmolality and hyponatremia; Z79.899 Other long term (current) drug therapy; Z88.5 Allergy status to narcotic agent; I10 Essential (primary) hypertension; Z90.49 Acquired absence of other specified parts of digestive tract; Z96.659 Presence of unspecified artificial knee joint; Z66 Do not resuscitate
CPT/HCPCS: 36415; 36430; 71046; 80053; 82550; 83605; 83615; 83880; 84484; 85025; 85379; 85610; 85730; 86140; 86900; 86901; 87040; 93005; 93010; 99285-25; A9270-GY; J1100; J1650; J2405; J7030; J7050; J8540; P9017

== ENCOUNTER 2019-12-29 08:53 | Inpatient (IN) | payer MEDICARE, OTHER ==
[2019-12-29] MEDS ORDERED: Ibuprofen 200 MG Tab PO PRN (09:28)
[2019-12-29] MEDS ORDERED: Ondansetron 4 MG Tab.DIS PO PRN (09:28)
[2019-12-29] MEDS ORDERED: Acetaminophen 325 MG Tab PO PRN (09:28)
--- NOTE | 2019-12-29 09:35 | PCM.DCSUM1 ---
Discharge Summary - Hospital Course HPI Initial Comments: Pierre is an 84 yo female who was initially admitted to the hospital secondary to COVID 19 with severe weakness She ended up becoming hypoxic during her stay and required oxygen via nasal canula. Patient did receive Remdesivir, Plasma and IV steroids as well. She has shown improvement gradually but continues to be unsteady on her feet. She states she is feeling a lot better than on admission. - Discharge Data Discharge Date: 12/29/19 Discharge Disposition: Home, Self-Care 01 Condition: Good - Referral to Home Health Primary Care Physician: Erik Schumacher MD - Discharge Diagnosis/Problem(s) (1) COVID-19 SNOMED Code(s): 893329463 ICD Code: U07.1 - COVID-19 Status: Acute Current Visit: No (2) Hypoxia SNOMED Code(s): 550668972 ICD Code: R09.02 - HYPOXEMIA Status: Acute Current Visit: No - Discharge Plan Home Medications: Home Meds Glucosamine/Chondroitin/Vit D3 [Svakavky-Tipegv-Trr D3 Tab] 1 tab PO DAILY 03/16/16 [History] Magnesium Oxide [Magnesium] 400 mg PO DAILY 03/16/16 [History] Nebivolol [Bystolic] 5 mg PO DAILY 03/16/16 [History] - Discharge Summary/Plan Comment DC Time >30 min.: Yes Discharge Summary/Plan Comment: Will discharge to swing bed care at this time for strengthening and continued oxygen therapy. Patient overall appears to be gradually improving daily. Continues on 6 liters per minute of O2 via nasal canula and we were able to turn down to 4 liters per nasal canula. Pulse has been bradycardic and will hold Bystolic today. Discussed with Pierre we really need to work on increasing her diet. I advised the importance of this. Nursing staff will continue to monitor gait and unsteadiness. Please use discharge summary for Swing Bed H&P. - General Info Date of Service: 12/29/19 Admission Dx/Problem (Free Text: COVID 19 Functional Status: Reports: Pain Controlled, Ambulating, Urinating, Incentive Spirometry. Denies: Tolerating Diet - Review of Systems General: Reports: Weakness HEENT: Reports: No Symptoms Pulmonary: Reports: Cough. Denies: Shortness of Breath Cardiovascular: Reports: No Symptoms Gastrointestinal: Reports: No Symptoms Genitourinary: Reports: No Symptoms Musculoskeletal: Reports: No Symptoms - Patient Data Med Orders - Current: Current Medications Acetaminophen (Tylenol) 650 mg PO Q4H PRN PRN Reason: Pain (Mild 1-3)/fever Ascorbic Acid (Vitamin C) 500 mg PO BID [facility] Cholecalciferol (Vitamin D3) 25 mcg PO DAILY [facility] Dexamethasone (Dexamethasone) 6 mg PO DAILY [facility] Enoxaparin Sodium (Lovenox) 40 mg SUBCUT DAILY@2000 [facility] Ibuprofen (Motrin) 400 mg PO Q6H PRN PRN Reason: Pain (mild 1-3) Magnesium Oxide (Magnesium Oxide) 500 mg PO DAILY [facility] Ondansetron HCl (Zofran Odt) 4 mg PO Q6H PRN PRN Reason: Nausea/Vomiting Zinc Sulfate (Zincate) 220 mg PO DAILY [facility] - Exam Quality Assessment: Reports: Supplemental Oxygen General: Reports: Alert, Oriented, Cooperative, No Acute Distress Neck: Reports: Supple Lungs: Reports: Clear to Auscultation, Normal Respiratory Effort Cardiovascular: Reports: Regular Rate, Regular Rhythm GI/Abdominal Exam: Normal Bowel Sounds, Soft, Non-Tender Extremities: Normal Inspection, No Pedal Edema, Normal Capillary Refill Skin: Reports: Warm, Dry, Intact Psy/Mental Status: Reports: Alert, Normal Affect, Normal Mood
[2019-12-29] MEDS: Ascorbic Acid 500 MG Tab PO SCH (19:36)
[2019-12-29] MEDS: Enoxaparin 40 MG/0.4 ML Syringe SUBCUT SCH (19:36)
[2019-12-30] MEDS: Ascorbic Acid 500 MG Tab PO SCH ×2 (07:44→19:38)
[2019-12-30] MEDS: Cholecalciferol (Vitamin D3) 25 MCG Tab PO SCH (07:45)
[2019-12-30] MEDS: Dexamethasone 4 MG Tab PO SCH (07:45)
[2019-12-30] MEDS: Zinc Sulfate 220 MG Cap PO SCH (07:45)
[2019-12-30] MEDS: Enoxaparin 40 MG/0.4 ML Syringe SUBCUT SCH (19:38)
[2019-12-31] MEDS: Zinc Sulfate 220 MG Cap PO SCH (08:30)
[2019-12-31] MEDS: Cholecalciferol (Vitamin D3) 25 MCG Tab PO SCH (08:30)
[2019-12-31] MEDS: Ascorbic Acid 500 MG Tab PO SCH ×2 (08:31→19:34)
[2019-12-31] MEDS: Dexamethasone 4 MG Tab PO SCH (08:31)
--- NOTE | 2019-12-31 19:21 | PCM.PN ---
- General Info Date of Service: 12/31/19 Admission Dx/Problem (Free Text): COVID 19 Functional Status: Reports: Pain Controlled, Tolerating Diet, Ambulating - Review of Systems General: Reports: Weakness, Fatigue, Malaise. Denies: Fever HEENT: Denies: Ear Pain, Sinus Congestion, Rhinitis Pulmonary: Denies: Shortness of Breath, Cough Cardiovascular: Denies: Chest Pain, Edema, Lightheadedness Gastrointestinal: Denies: Abdominal Pain, Nausea, Vomiting Genitourinary: Reports: No Symptoms Musculoskeletal: Reports: No Symptoms Skin: Reports: No Symptoms Neurological: Reports: Weakness - Patient Data Vitals - Most Recent: Last Vital Signs Temp 97.9 F 12/31/19 08:00 Pulse 50 L 12/31/19 08:00 Resp 20 12/31/19 08:00 BP 147/51 H 12/31/19 08:00 Pulse Ox 93 L 12/31/19 08:00 Weight - Most Recent: 175 lb Med Orders - Current: Current Medications Acetaminophen (Tylenol) 650 mg PO Q4H PRN PRN Reason: Pain (Mild 1-3)/fever Last Admin: 12/30/19 19:45 Dose: 650 mg Documented by: Ascorbic Acid (Vitamin C) 500 mg PO BID [facility] Last Admin: 12/31/19 08:31 Dose: 500 mg Documented by: Cholecalciferol (Vitamin D3) 25 mcg PO DAILY [facility] Last Admin: 12/31/19 08:30 Dose: 25 mcg Documented by: Dexamethasone (Dexamethasone) 6 mg PO DAILY [facility] Last Admin: 12/31/19 08:31 Dose: 6 mg Documented by: Enoxaparin Sodium (Lovenox) 40 mg SUBCUT DAILY@1999 [facility] Last Admin: 12/30/19 19:38 Dose: 40 mg Documented by: Ibuprofen (Motrin) 400 mg PO Q6H PRN PRN Reason: Pain (mild 1-3) Magnesium Oxide (Magnesium Oxide) 500 mg PO DAILY [facility] Last Admin: 12/31/19 08:30 Dose: 500 mg Documented by: Ondansetron HCl (Zofran Odt) 4 mg PO Q6H PRN PRN Reason: Nausea/Vomiting Zinc Sulfate (Zincate) 220 mg PO DAILY [facility] Last Admin: 12/31/19 08:30 Dose: 220 mg Documented by: - Exam Quality Assessment: Supplemental Oxygen General: Alert, Oriented HEENT: Mucous Membr. Moist/[employer] Neck: Supple Lungs: Decreased Breath Sounds Cardiovascular: Regular Rhythm, Bradycardia GI/Abdominal Exam: Normal Bowel Sounds, Soft, Non-Tender Extremities: Normal Inspection, No Pedal Edema Skin: Warm, Dry Neurological: No New Focal Deficit Sepsis Event Note - Evaluation Sepsis Screening Result: No Definite Risk - Focused Exam Vital Signs: Vital Signs Temp Pulse Resp BP Pulse Ox 12/31/19 08:00 97.9 F 50 L 20 147/51 H 93 L - Problem List & Annotations (1) COVID-19 SNOMED Code(s): 793871888 Code(s): U07.1 - COVID-19 Status: Acute Priority: High Current Visit: Yes (2) Hyponatremia SNOMED Code(s): 10448227 Code(s): E87.1 - HYPO-OSMOLALITY AND HYPONATREMIA Status: Acute Priority: High Current Visit: Yes (3) Hypoxia SNOMED Code(s): 780267886 Code(s): R09.02 - HYPOXEMIA Status: Acute Priority: High Current Visit: Yes - Problem List Review Problem List Initiated/Reviewed/Updated: Yes - Assessment Assessment:: COVID 19 Hypoxia Hyponatremia - Plan Plan:: Patient states is "starting to feel better". Now able to eat without as much nausea, appetite returning. Feeling less short of breath. Sats 93% on 4 liters this am. Lung sounds diminished. Up in chair, moving about room and states "doing exercises". Refused to lie prone as "makes my heartburn so much worse". Discussed importance of ambulation, incentive spirometry and prone positioning. Attempt to wean down off oxygen but does have concentrator at home so if needed, could be discharged home on oxygen. Possible discharge in next 48 hours.
[2019-12-31] MEDS: Enoxaparin 40 MG/0.4 ML Syringe SUBCUT SCH (19:34)
[2020-01-01] MEDS: Zinc Sulfate 220 MG Cap PO SCH (07:33)
[2020-01-01] MEDS: Cholecalciferol (Vitamin D3) 25 MCG Tab PO SCH (07:33)
[2020-01-01] MEDS: Dexamethasone 4 MG Tab PO SCH (07:34)
[2020-01-01] MEDS: Ascorbic Acid 500 MG Tab PO SCH (07:34)
[2020-01-01 07:35] LABS: CHLORIDE,CL 102 mEq/L (98-106); SODIUM,NA 136 mEq/L (136-145)
--- NOTE | 2020-01-01 10:18 | PCM.DCSUM1 ---
Discharge Summary - Hospital Course HPI Initial Comments: Pierre is an 84 yo female who was initially admitted to the hospital secondary to COVID 19 with severe weakness. She ended up becoming hypoxic during her stay and required oxygen via nasal canula. Patient did receive Remdesivir, Plasma and IV steroids as well. She has shown improvement. Did end up having to go to swing bed due to ongoing weakness. Strength has improved. She has been weaned off oxygen. VSS on RA. She is ambulating without difficulty. She has no complaints at time of discharge. Reports she is feeling very well. Labs are stable. - Discharge Data Discharge Date: 01/01/20 Discharge Disposition: Home, Self-Care 01 Condition: Good - Referral to Home Health Primary Care Physician: Erik Schumacher MD - Discharge Diagnosis/Problem(s) (1) COVID-19 SNOMED Code(s): 839518146 ICD Code: U07.1 - COVID-19 Status: Acute Priority: High (2) Hyponatremia SNOMED Code(s): 08105671 ICD Code: E87.1 - HYPO-OSMOLALITY AND HYPONATREMIA Status: Acute Priority: High (3) Hypoxia SNOMED Code(s): 886803641 ICD Code: R09.02 - HYPOXEMIA Status: Acute Priority: High - Patient Instructions Diet: Usual Diet as Tolerated, Drink 8-10+ Glasses/Day Activity: As Tolerated, Cough & Deep Breathe - Discharge Plan *PRESCRIPTION DRUG MONITORING PROGRAM REVIEWED*: Not Applicable *COPY OF PRESCRIPTION DRUG MONITORING REPORT IN PATIENT HOANG: Not Applicable Home Medications: Home Meds Glucosamine/Chondroitin/Vit D3 [Twfenxrq-Hcdpqc-Xrb D3 Tab] 1 tab PO DAILY 03/16/16 [History] Magnesium Oxide [Magnesium] 400 mg PO DAILY 03/16/16 [History] Nebivolol [Bystolic] 5 mg PO DAILY 03/16/16 [History] Oxygen Therapy Mode: Room Air Patient Handouts: COVID-19 Frequently Asked Questions, COVID-19: How to Protect Yourself and Others - [facility] - Discharge Summary/Plan Comment DC Time >30 min.: No - General Info Date of Service: 01/01/20 Admission Dx/Problem (Free Text: COVID 19 Subjective Update: Reports she has no complaints today. Is feeling well. Appetite and weakness have improved. VSS on RA. She reports she "cannot think of a complaint." Functional Status: Reports: Pain Controlled, Tolerating Diet, Ambulating, Urinating. Denies: New Symptoms - Review of Systems General: Reports: No Symptoms. Denies: Fever, Weakness, Malaise Pulmonary: Reports: No Symptoms Cardiovascular: Reports: No Symptoms Gastrointestinal: Reports: No Symptoms Genitourinary: Reports: No Symptoms Musculoskeletal: Reports: No Symptoms Neurological: Reports: No Symptoms Psychiatric: Reports: No Symptoms - Patient Data Vitals - Most Recent: Last Vital Signs Temp 98.8 F 12/31/19 20:00 Pulse 63 12/31/19 20:00 Resp 16 01/01/20 03:15 BP 163/54 H 12/31/19 20:00 Pulse Ox 94 L 01/01/20 03:15 Weight - Most Recent: 175 lb Lab Results - Last 24 hrs: Laboratory Results - last 24 hr 01/01/20 01/01/20 Range/Units 06:55 06:55 WBC 9.4 (5.0-10.0) 10^3/uL RBC 3.76 L (4.00-5.50) 10^6/uL Hgb 11.4 L (12.0-16.0) g/dL Hct 35.2 L (37.0-47.0) % MCV 93.6 (82.0-94.0) fL MCH 30.3 (27.0-32.0) pg MCHC 32.4 L (33.0-38.0) g/dL RDW Coeff of Kiet 13.4 (11.0-15.0) % Plt Count 276 (150-400) 10^3/uL Neut % (Auto) 76.8 (35-85) % Lymph % (Auto) 11.7 (10-55) % [place] % (Auto) 10.2 (0-16) % Eos % (Auto) 0.7 (0-5) % Baso % (Auto) 0.6 (0-3) % Neut # (Auto) 7.24 H (1.80-7.00) 10^3/uL Lymph # (Auto) 1.10 (1.00-4.80) 10^3/uL [place] # (Auto) 0.96 H (0.00-0.80) 10^3/uL Eos # (Auto) 0.07 (0.00-0.45) 10^3/uL Baso # (Auto) 0.06 10^3/uL Sodium 136 (136-145) mEq/L Potassium 4.5 (3.5-5.0) mEq/L Chloride 102 (98-106) mEq/L Carbon Dioxide 27 (21-32) mmol/L BUN 24 H (7-18) mg/dL Creatinine 0.8 (0.6-1.0) mg/dL Est Cr Clr Drug Dosing 43.59 mL/min Estimated GFR (MDRD) > 60 (>=60) mL/min Glucose 80 (75-99) mg/dL Calcium 8.0 L (8.4-10.1) mg/dL C-Reactive Protein 0.6 (0.2-0.8) mg/dL Med Orders - Current: Current Medications Acetaminophen (Tylenol) 650 mg PO Q4H PRN PRN Reason: Pain (Mild 1-3)/fever Last Admin: 12/30/19 19:45 Dose: 650 mg Documented by: Ascorbic Acid (Vitamin C) 500 mg PO BID [facility] Last Admin: 01/01/20 07:34 Dose: 500 mg Documented by: Cholecalciferol (Vitamin D3) 25 mcg PO DAILY [facility] Last Admin: 01/01/20 07:33 Dose: 25 mcg Documented by: Dexamethasone (Dexamethasone) 6 mg PO DAILY [facility] Last Admin: 01/01/20 07:34 Dose: 6 mg Documented by: Enoxaparin Sodium (Lovenox) 40 mg SUBCUT DAILY@1999 [facility] Last Admin: 12/31/19 19:34 Dose: 40 mg Documented by: Ibuprofen (Motrin) 400 mg PO Q6H PRN PRN Reason: Pain (mild 1-3) Magnesium Oxide (Magnesium Oxide) 500 mg PO DAILY [facility] Last Admin: 01/01/20 07:33 Dose: 500 mg Documented by: Ondansetron HCl (Zofran Odt) 4 mg PO Q6H PRN PRN Reason: Nausea/Vomiting Zinc Sulfate (Zincate) 220 mg PO DAILY [facility] Last Admin: 01/01/20 07:33 Dose: 220 mg Documented by: - Exam Quality Assessment: Reports: DVT Prophylaxis. Denies: Supplemental Oxygen General: Reports: Alert, Oriented, No Acute Distress HEENT: Reports: Pupils Equal, Pupils Reactive, EOMI, Mucous Membr. Moist/[employer] Neck: Reports: Supple Lungs: Reports: Clear to Auscultation, Normal Respiratory Effort Cardiovascular: Reports: Regular Rate, Regular Rhythm GI/Abdominal Exam: Normal Bowel Sounds, Soft, Non-Tender, No Organomegaly, No Distention, No Abnormal Bruit, No Mass, Pelvis Stable Extremities: Normal Inspection, Normal Range of Motion, Non-Tender, No Pedal Edema, Normal Capillary Refill Skin: Reports: Warm, Dry, Intact Neurological: Reports: No New Focal Deficit Psy/Mental Status: Reports: Alert, Normal Affect, Normal Mood
[2020-01-01 10:45] VITALS: BP 148/60; PULSE 54
== END 2020-01-01 13:45 | disposition home or self-care (01) | DRG 947 ==
LOC: UNDOADMIN 08:53 → CC.MS 08:53
PROVIDERS: ADMIT Family Medicine; ATTEND Family Medicine
DX: R53.1 Weakness (principal); U07.1 COVID-19; E87.1 Hypo-osmolality and hyponatremia
CPT/HCPCS: 36415; 80048; 85025; 86140; A9270-GY; J1650; J8540

== ENCOUNTER → 2021-03-18 | Day surgery (SDC) | payer MEDICARE, OTHER ==
[~2021-03-18] MED LIST changes: +Ketamine 200 MG/20 ML MDV ONE; +Lidocaine 2% 5 ML SDV ONE; -Propofol 200 MG/20 ML SDV IV ONE; +Propofol 200 MG/20 ML SDV ONE; +fentaNYL 100 MCG/2 ML SDV ONE
[2021-03-18 13:37] VITALS: BP 174/60; PULSE 64
== END ==
LOC: CC.SDS 08:57
PROVIDERS: ATTEND Family Medicine
DX: C18.0 Malignant neoplasm of cecum (principal); D12.7 Benign neoplasm of rectosigmoid junction; D50.9 Iron deficiency anemia, unspecified; K57.30 Diverticulosis of large intestine without perforation or abscess without bleeding; E66.9 Obesity, unspecified; Q40.2 Other specified congenital malformations of stomach; I10 Essential (primary) hypertension; E78.5 Hyperlipidemia, unspecified; Z88.5 Allergy status to narcotic agent; Z68.29 Body mass index [BMI] 29.0-29.9, adult
CPT/HCPCS: 43239; 45380; 45385; 87081; J2704; J3010; J7120; 88305; 88341; 88342

== ENCOUNTER 2021-04-26 08:34 | Inpatient (IN) | payer MEDICARE, OTHER ==
[2021-04-26] MEDS ORDERED: Ondansetron 4 MG Tab.DIS PO PRN (14:37)
[2021-04-26] MEDS: Vancomycin 125 MG Cap PO SCH ×3 (15:12→19:35)
[2021-04-26] MEDS: Ferrous Sulfate 324 MG Tab.EC PO SCH (17:16)
[2021-04-26] MEDS: Melatonin 3 MG Tab PO SCH (19:34)
[2021-04-27] MEDS: Pantoprazole 40 MG Tab.CR PO SCH (06:51)
[2021-04-27] MEDS: Vancomycin 125 MG Cap PO SCH ×4 (08:27→20:08)
[2021-04-27] MEDS: Carvedilol 3.125 MG Tab PO SCH ×2 (08:27→20:09)
[2021-04-27] MEDS: Ferrous Sulfate 324 MG Tab.EC PO SCH ×2 (08:27→16:54)
[2021-04-27] MEDS: Multivitamin Tab PO SCH (08:27)
[2021-04-27] MEDS: Melatonin 3 MG Tab PO SCH (20:08)
[2021-04-28] MEDS: Pantoprazole 40 MG Tab.CR PO SCH (06:05)
[2021-04-28] MEDS: Vancomycin 125 MG Cap PO SCH ×4 (07:25→19:34)
[2021-04-28] MEDS: Multivitamin Tab PO SCH (07:25)
[2021-04-28] MEDS: Carvedilol 3.125 MG Tab PO SCH ×2 (07:25→19:39)
[2021-04-28] MEDS: Ferrous Sulfate 324 MG Tab.EC PO SCH ×2 (07:26→16:36)
[2021-04-28] MEDS: Melatonin 3 MG Tab PO SCH (19:34)
[2021-04-29] MEDS: Acetaminophen 500 MG Tab PO PRN ×2 (03:43→14:22)
[2021-04-29] MEDS: Pantoprazole 40 MG Tab.CR PO SCH (06:12)
[2021-04-29] MEDS: Ferrous Sulfate 324 MG Tab.EC PO SCH ×2 (08:06→18:45)
[2021-04-29] MEDS: Multivitamin Tab PO SCH (08:06)
[2021-04-29] MEDS: Carvedilol 3.125 MG Tab PO SCH ×2 (08:06→19:32)
[2021-04-29] MEDS: Vancomycin 125 MG Cap PO SCH ×4 (08:06→19:33)
[2021-04-29] MEDS: Melatonin 3 MG Tab PO SCH (19:32)
[2021-04-29] MEDS: Sulfamethoxazole/Trimethoprim 800-160 MG Tab PO SCH (20:42)
[2021-04-30] MEDS: Acetaminophen 500 MG Tab PO PRN ×2 (00:27→15:52)
[2021-04-30] MEDS: Pantoprazole 40 MG Tab.CR PO SCH (06:55)
[2021-04-30] MEDS: Ferrous Sulfate 324 MG Tab.EC PO SCH ×2 (07:54→17:26)
[2021-04-30] MEDS: Carvedilol 3.125 MG Tab PO SCH ×2 (07:54→19:25)
[2021-04-30] MEDS: Sulfamethoxazole/Trimethoprim 800-160 MG Tab PO SCH ×2 (07:55→19:26)
[2021-04-30] MEDS: Vancomycin 125 MG Cap PO SCH ×4 (07:55→19:26)
[2021-04-30] MEDS: Multivitamin Tab PO SCH (07:55)
[2021-04-30] MEDS: Melatonin 3 MG Tab PO SCH (19:25)
[2021-04-30] MEDS ORDERED: Acetaminophen 500 MG Tab PO STA (19:48)
[2021-05-01] MEDS: Acetaminophen 500 MG Tab PO PRN ×2 (03:41→11:00)
[2021-05-01] MEDS: Pantoprazole 40 MG Tab.CR PO SCH (06:00)
[2021-05-01] MEDS: Multivitamin Tab PO SCH (07:58)
[2021-05-01] MEDS: Sulfamethoxazole/Trimethoprim 800-160 MG Tab PO SCH (07:58)
[2021-05-01] MEDS: Ferrous Sulfate 324 MG Tab.EC PO SCH ×2 (07:58→17:34)
[2021-05-01] MEDS: Carvedilol 3.125 MG Tab PO SCH ×2 (07:58→19:10)
[2021-05-01] MEDS: Vancomycin 125 MG Cap PO SCH ×4 (07:59→19:11)
[2021-05-01] MEDS ORDERED: Acetaminophen 500 MG Tab PO ONE (16:15)
[2021-05-01] MEDS ORDERED: cefTRIAXone 1 GM Vial IVPUSH ONE (17:02)
[2021-05-01] MEDS ORDERED: Acetaminophen 500 MG Tab PO PRN (18:09)
[2021-05-01] MEDS: Melatonin 3 MG Tab PO SCH (19:10)
[2021-05-02] MEDS: Pantoprazole 40 MG Tab.CR PO SCH (06:00)
[2021-05-02] MEDS: Vancomycin 125 MG Cap PO SCH ×4 (08:03→19:53)
[2021-05-02] MEDS: Ferrous Sulfate 324 MG Tab.EC PO SCH ×2 (08:03→16:58)
[2021-05-02] MEDS: Carvedilol 3.125 MG Tab PO SCH ×2 (08:03→19:53)
[2021-05-02] MEDS: Multivitamin Tab PO SCH (08:03)
[2021-05-02] MEDS: cefTRIAXone 1 GM Vial IVPUSH SCH (16:58)
[2021-05-02] MEDS: Melatonin 3 MG Tab PO SCH (19:53)
[2021-05-03] MEDS: Pantoprazole 40 MG Tab.CR PO SCH (06:23)
[2021-05-03] MEDS: Ferrous Sulfate 324 MG Tab.EC PO SCH (08:04)
[2021-05-03] MEDS: Carvedilol 3.125 MG Tab PO SCH (08:04)
[2021-05-03] MEDS: Multivitamin Tab PO SCH (08:04)
[2021-05-03] MEDS: Vancomycin 125 MG Cap PO SCH (08:05)
[2021-05-03 08:16] VITALS: BP 150/56; PULSE 74
[2021-05-03] MEDS: cefTRIAXone 1 GM Vial IVPUSH SCH (13:15)
== END 2021-05-03 13:45 | disposition home or self-care (01) | DRG 948 ==
LOC: CC.MS 13:13 → UNDOADMIN 13:13 → CC.MS 14:04
PROVIDERS: ADMIT Nurse Practitioner Family; ATTEND Nurse Practitioner Family
DX: R53.81 Other malaise (principal); N12 Tubulo-interstitial nephritis, not specified as acute or chronic; C18.2 Malignant neoplasm of ascending colon; D64.9 Anemia, unspecified; A49.8 Other bacterial infections of unspecified site; E78.00 Pure hypercholesterolemia, unspecified; B96.89 Other specified bacterial agents as the cause of diseases classified elsewhere; Z96.659 Presence of unspecified artificial knee joint; Z90.49 Acquired absence of other specified parts of digestive tract; Z88.5 Allergy status to narcotic agent; Z79.899 Other long term (current) drug therapy; Z90.710 Acquired absence of both cervix and uterus; Z98.49 Cataract extraction status, unspecified eye
CPT/HCPCS: 36415; 80053; 81001; 85025; 87040; 87086; 87088; 87186; 97110-GP; 97116-GP; 97161-GP; 97530-GP; 99306; 99307; 99315; A9270-GY; J0696

== ENCOUNTER → 2022-03-17 | Day surgery (SDC) | payer MEDICARE, OTHER ==
[~2022-03-17] MED LIST changes: -Ketamine 200 MG/20 ML MDV ONE; -Lidocaine 2% 5 ML SDV ONE; -Propofol 200 MG/20 ML SDV ONE; -fentaNYL 100 MCG/2 ML SDV ONE
[2022-03-17 12:31] VITALS: BP 132/51; PULSE 56
== END ==
LOC: CC.SDS 07:58
PROVIDERS: ATTEND Family Medicine
DX: C18.2 Malignant neoplasm of ascending colon (principal); K57.30 Diverticulosis of large intestine without perforation or abscess without bleeding; D64.9 Anemia, unspecified; E55.9 Vitamin D deficiency, unspecified; I10 Essential (primary) hypertension; E78.5 Hyperlipidemia, unspecified; M19.90 Unspecified osteoarthritis, unspecified site; Z79.899 Other long term (current) drug therapy; Z98.890 Other specified postprocedural states; Z88.5 Allergy status to narcotic agent
CPT/HCPCS: 45378; J7120

== ENCOUNTER 2023-02-10 10:39 | Emergency (ER) | payer MEDICARE, OTHER ==
[2023-02-10 10:43] VITALS: BP 163/59; PULSE 86
[2023-02-10] MEDS ORDERED: Acetaminophen 325 MG Tab PO ONE (10:44)
[2023-02-10 11:07] LABS: BASOPHILS ABSOLUTE AUTO 0.07 10^3/uL (0.00-0.50); BASOPHILS PERCENT AUTO 0.5 % (0-1); EOSINOPHILS ABSOLUTE AUTO 0.15 10^3/uL (0.00-1.50); EOSINOPHILS PERCENT AUTO 1.2 % (0-6); HEMATOCRIT 37.9 % (37.0-47.0); HEMOGLOBIN 12.4 g/dL (12.0-16.0); IMMATURE GRAN ABSOLUTE AUTO 0.02 10^3/uL (0.00-0.49); IMMATURE GRAN PERCENT AUTO 0.2 % (0.0-4.9); LYMPHOCYTES ABSOLUTE AUTO 1.42 10^3/uL (0.60-5.00); MEAN CORPUSCULAR HEMOGLOBIN 31.4 pg (27.0-32.0); MEAN CORPUSCULAR HGB CONC 32.7 g/dL (32.0-36.0); MEAN CORPUSCULAR VOLUME 95.9 fL (83.0-97.0); MONOCYTES PERCENT AUTO 10.1 % (0-10); NEUTROPHILS ABSOLUTE AUTO 9.96 x10^3/uL (1.80-8.00); PLATELET COUNT,PLT 251 10^3/uL (150-400); RED BLOOD CELL COUNT 3.95 x10^6/uL (4.00-5.50); WHITE BLOOD CELL COUNT,WBC 12.9 10^3/uL (4.0-11.0)
[2023-02-10 11:20] LABS: ALBUMIN 3.1 g/dL (3.4-5.0); BILIRUBIN TOTAL 0.7 mg/dL (0.0-1.0); C-REACTIVE PROTEIN 16.03 mg/dL (<=0.50); CALCIUM 8.9 mg/dL (8.4-10.1); CREATININE 1.1 mg/dL (0.6-1.0); EST CRCL DRUG DOSING (CG) 29.94 mL/min; POTASSIUM,K 4.5 mEq/L (3.5-5.0); PROTEIN TOTAL,TP 7.8 g/dL (6.4-8.2)
[2023-02-10 11:43] LABS: CORONAVIRUS COVID-19 NAA NEGATIVE (NEGATIVE); INFLUENZA A NAA NEGATIVE (NEGATIVE); INFLUENZA B NAA NEGATIVE (NEGATIVE)
== END 2023-02-10 12:20 | disposition home or self-care (01) ==
LOC: CC.ED 10:39
DX: J40 Bronchitis, not specified as acute or chronic (principal); I10 Essential (primary) hypertension; Z88.5 Allergy status to narcotic agent; Z20.822 Contact with and (suspected) exposure to COVID-19; Z86.16 Personal history of COVID-19; Z90.49 Acquired absence of other specified parts of digestive tract; Z90.710 Acquired absence of both cervix and uterus
CPT/HCPCS: 0240U; 36415; 80053; 85025; 86140; 99283; A9270-GY